=== PATIENT | female | born 1995 | race Caucasian/White ===

== ENCOUNTER 2017-12-16 17:23 | Emergency (ER) | payer OTHER, SELFPAY ==
[2017-12-16 17:48] VITALS: BP 112/77; PULSE 84; RESP 20; TEMP 37.4; O2SAT 96; BMI 23.9
--- NOTE | 2017-12-16 18:06 | HMH.EDUTC ---
[facility] [place] Disposition Clinical Impression: Otitis media Qualifiers: Otitis media type: unspecified Laterality: left Qualified Code(s): H66.92 - Otitis media, unspecified, left ear Disposition: Home, Self-Care Condition on Discharge: Good Instructions: Middle Ear Infection, Ear Infections (Middle Ear) (Alternative Therapy) Additional Instructions: * Monitor Temp. Tylenol and/or Ibuprofen as needed. ER if fever is no less than 101 despite alternating Tylenol and Ibuprofen * Encourage fluids, water, Gatorade, powerade, pedialyte if /toddler/or child * Warm salt water gargles for throat irritation *Warm fluids *Sore throat lozenges *Sleep elevated *humidifier or vaporizer Lots of rest Increase fluids, water, Gatorade, powerade Your throat swab was sent to lab for culture. Those results area typically sent to your primary care physician. Be sure to follow up in 2-3 days if no improvement so they can review those results and treat if necessary If you dont have primary care I recommend you get one, but in the mean time you will have to return to a walk in clinic Follow up IMMEDIATELY for new or worsening of symptoms OR no noticeable improvement over the next 48-72 hours. 911 immediately for any life threatening symptoms such as chest pain or difficulty breathing Prescriptions: Amoxicillin [Amoxil 250mg/5mL 100mL Oral Susp] 500 mg PO Q8H #300 ml Referrals: Thea Marley APRN [Primary Care Provider] - Time of Disposition: 18:15 Medical Decision Making - Medical Records Medical records reviewed: Yes: I reviewed the patient's medical records. - Aniceto Inquiry Pt receiving controlled substance: No Aniceto was queried for this patient: No Vital Signs: 12/16/17 17:48 Temperature 99.4 F Temperature Source Temporal Artery Scan Pulse Rate [Right] 84 Respiratory Rate 20 Blood Pressure [Right Arm] 112/77 Blood Pressure Mean [Right Arm] 88 Blood Pressure Source [Right Arm] Automatic Cuff Blood Pressure Position [Right Arm] Sitting 02 Sat by Pulse Oximetry 96 Oxygen Delivery Method Room Air - Lab Data Lab results reviewed: Yes: I reviewed the patient's lab results. [facility] [place] HPI - General Stated complaint: sore throat, burning in nose, coughing,ear pain Time Seen by Provider: 12/16/17 18:06 Mode of Arrival: Ambulatory Source of Information: Patient Limitations: No Limitations Description of Symptoms (Recalled from Triage Doc. by RN): SORE THROAT, EARACHE HEENT Symptoms (Recalled from RN notes): Yes Resp Symptoms (Recalled from RN notes): No Skin Symptoms (Recalled from RN notes): No MS Symptoms (Recalled from RN notes): No Functional Status (Recalled from RN notes): N - History of Present Illness Provider Complaint: Patient states that she has been having pain in her left ear now for about a week that has continued to get worse States that she is also having sore throat that hurts when she swallows States that throat feels raw and irritated and ear hurts also when she swallows - Related Data Previous Rx's Medication Instructions Recorded Amoxicillin [Amoxil 250mg/5mL 500 mg PO Q8H #300 ml 12/16/17 100mL Oral Susp] Allergies Allergy/AdvReac Type Severity Reaction Status Date / Time azithromycin [AZITHROMYCIN] Allergy Unknown Verified 12/16/17 17:52 COCONUT Allergy Unknown S-SWELLS-OR Uncoded 09/22/17 15:34 AL/THROAT - Worker's Comp Is this a Worker's Comp case?: No [facility] History I have reviewed the patient's past medical history: Yes - Social History Smoking Status: Current every day smoker Tobacco Type: cigarettes Alcohol Intake: never - Psychiatric History Expresses thoughts of harming self/others: None Suicide Plan Description: No Plan ROS Obtained: Yes All systems reviewed & no additional complaints - Constitutional Constitutional: Reports fever(s) - ENT Ears, Nose, Mouth, and Throat: Reports otalgia, Reports sore throat Physical Exam - General General appearance:
--- NOTE | 2017-12-16 18:11 | ED_ITS ---
[facility] Disposition Clinical Impression: Otitis media Qualifiers: Otitis media type: unspecified Laterality: left Qualified Code(s): H66.92 - Otitis media, unspecified, left ear Disposition: Home, Self-Care Condition on Discharge: Good Instructions: Middle Ear Infection, Ear Infections (Middle Ear) (Alternative Therapy) Additional Instructions: * Monitor Temp. Tylenol and/or Ibuprofen as needed. ER if fever is no less than 101 despite alternating Tylenol and Ibuprofen * Encourage fluids, water, Gatorade, powerade, pedialyte if /toddler/or child * Warm salt water gargles for throat irritation *Warm fluids *Sore throat lozenges *Sleep elevated *humidifier or vaporizer Lots of rest Increase fluids, water, Gatorade, powerade Your throat swab was sent to lab for culture. Those results area typically sent to your primary care physician. Be sure to follow up in 2-3 days if no improvement so they can review those results and treat if necessary If you don? t have primary care I recommend you get one, but in the mean time you will have to return to a walk in clinic Follow up IMMEDIATELY for new or worsening of symptoms OR no noticeable improvement over the next 48-72 hours. 911 immediately for any life threatening symptoms such as chest pain or difficulty breathing Prescriptions: Amoxicillin [Amoxil 250mg/5mL 100mL Oral Susp] 500 mg PO Q8H #300 ml Referrals: Thea Marley APRN [Primary Care Provider] - Time of Disposition: 18:15 Medical Decision Making - Medical Records Medical records reviewed: Yes: I reviewed the patient's medical records. - Aniceto Inquiry Pt receiving controlled substance: No Aniceto was queried for this patient: No Vital Signs: 12/16/17 17:48 Temperature 99.4 F Temperature Source Temporal Artery Scan Pulse Rate [Right] 84 Respiratory Rate 20 Blood Pressure [Right Arm] 112/77 Blood Pressure Mean [Right Arm] 88 Blood Pressure Source [Right Arm] Automatic Cuff Blood Pressure Position [Right Arm] Sitting 02 Sat by Pulse Oximetry 96 Oxygen Delivery Method Room Air - Lab Data Lab results reviewed: Yes: I reviewed the patient's lab results. [facility] HPI - General Stated complaint: sore throat, burning in nose, coughing,ear pain Time Seen by Provider: 12/16/17 18:06 Mode of Arrival: Ambulatory Source of Information: Patient Limitations: No Limitations Description of Symptoms (Recalled from Triage Doc. by RN): SORE THROAT, EARACHE HEENT Symptoms (Recalled from RN notes): Yes Resp Symptoms (Recalled from RN notes): No Skin Symptoms (Recalled from RN notes): No MS Symptoms (Recalled from RN notes): No Functional Status (Recalled from RN notes): N - History of Present Illness Provider Complaint: Patient states that she has been having pain in her left ear now for about a week that has continued to get worse States that she is also having sore throat that hurts when she swallows States that throat feels raw and irritated and ear hurts also when she swallows - Related Data Previous Rx's Medication Instructions Recorded Amoxicillin [Amoxil 250mg/5mL 500 mg PO Q8H #300 ml 12/16/17 100mL Oral Susp] Allergies Allergy/AdvReac Type Severity Reaction Status Date / Time azithromycin [AZITHROMYCIN] Allergy Unknown Verified 12/16/17 17:52 COCONUT Allergy Unknown S-SWELLS-OR Uncoded 09/22/17 15:34 AL/THROAT -
[2017-12-16 18:19] VITALS: BP 112/77; PULSE 84; RESP 20; TEMP 37.4
[2017-12-16 19:19] LABS: UTC Influenza A Antigen Negative (Negative); UTC Influenza B Antigen Negative (Negative); UTC Strep Screen (Rapid) Negative (Negative)
== END 2017-12-16 18:22 | disposition home or self-care (01) ==
PROVIDERS: Emergency Provider Nurse Practitioner; Family Provider Nurse Practitioner Family; PCP Nurse Practitioner Family
DX: H66.92 Otitis media, unspecified, left ear (principal)
CPT/HCPCS: 87804; 87880; 99202

== ENCOUNTER 2017-12-24 19:32 | Emergency (ER) | payer OTHER, SELFPAY ==
[2017-12-24 19:43] VITALS: BP 135/85; PULSE 97; RESP 20; TEMP 37.1; O2SAT 22; BMI 20.5
--- NOTE | 2017-12-24 19:49 | XR_ITS ---
XR chest portable HISTORY: ITS.REASON: syncope ORDERING PHYSICIAN: Cecily Toro MD PATIENT AGE: 22 years COMPARISON: 09/13/2017 FINDINGS: The cardiomediastinal silhouette and pulmonary vascularity are within normal limits. There is evidence of old granulomatous disease. There is mild hyperinflation. There is been prior median sternotomy. No lobar consolidation or collapse. Thoracic scoliosis convex right with perinephric and rods present. IMPRESSION: No change with no acute finding
--- NOTE | 2017-12-24 19:49 | CT_ITS ---
CT head/brain wo con HISTORY: Syncope ITS.REASON: syncope ORDERING PHYSICIAN: Cecily Toro MD PATIENT AGE: 22 years COMPARISON: 02/17/2016 TECHNIQUE: Axial images obtained without contrast. Brain and bone windows reviewed. All CT scans at the facility use one or more dose reduction, viz: automated exposure control; ma/kV adjustment per patient size (including targeted exams where dose is matched to indication; i.e. head); or iterative reconstruction technique. FINDINGS: No midline shift, mass effect, intracranial hemorrhage, hydrocephalus, or extra-axial fluid collection is evident. Coarse lobular calcification is present involving the falx anteriorly as before. The calvarium has an unremarkable appearance. No mastoid effusion. No sinus air-fluid levels.. IMPRESSION: No acute intracranial findings.
[2017-12-24 20:06] LABS: Microscopic, Urine URINE MICROSCOPIC (MICROSCOPIC)
[2017-12-24 20:17] LABS: Basophils # 0.1 K/mm3 (0-0.2); Basophils % 0.5 % (0.1-2.0); Eosinophils # 0.2 K/mm3 (0.0-0.4); Eosinophils % 1.5 % (0.1-12.0); Hematocrit 43.8 % (37.0-47.0); Hemoglobin 15.2 g/dL (12.2-16.2); Lymphocytes # 3.2 K/mm3 (0.7-4.5); Lymphocytes % 30.9 K/mm3 (10-50); Mean Corpuscular HGB Conc 34.8 g/dL (31.8-35.4); Mean Corpuscular Hemoglobin 30.5 pg (27.0-31.2); Mean Corpuscular Volume 87.7 fl (81-99); Mean Platelet Volume 7.1 fl (7.4-10.4); Monocytes # 0.4 K/mm3 (0.1-1.0); Monocytes % 3.5 % (1.7-9.3); Neutrophils # 6.6 K/mm3 (1.8-7.8); Neutrophils % 63.5 % (37.0-80.0); Platelet Count 397 K/mm3 (142-424); Red Blood Count 4.99 M/mm3 (4.20-5.40); Red Cell Distribution Width 12.5 % (11.5-17.5); White Blood Count 10.4 K/mm3 (4.8-10.8)
[2017-12-24 20:17] LABS: Appearance,Urine CLEAR (Clear); Bilirubin,Urine Negative (Negative); Blood, Urine Negative (Negative); Color,Urine YELLOW (Yellow); Glucose,Urine (UA) Negative (Negative); Ketones,Urine Negative (Negative); Leukocyte Esterase,Urine 1+ (Negative); Nitrate,Urine Negative (Negative); Protein,Urine Negative (Negative)
[2017-12-24 20:21] LABS: Urine Pregnancy, HCG Qual. Negative (Negative)
--- NOTE | 2017-12-24 20:49 | HMH.EDSYNC ---
ED Disposition Clinical Impression: TIA (transient ischemic attack), Marfan syndrome, Anxiety, Left against medical advice Disposition: Left Against Medical Advice Condition on Discharge: Fair Instructions: DI for Syncope in Adults (Fainting), DI for Syncope in Children (Fainting) Referrals: Thea Marley APRN [Primary Care Provider] - Forms: Transfer Record - ED - Critical Care Critical Care Time: No Attestation: On 12/24/17, the high probability of a clinically significant, sudden or life threatening deterioration of the following system(s) required my full and direct attention, intervention and personal management. The time I documented below is in addition to time spent performing reported procedures but includes the following listed in this critical care notation. Medical Decision Making - Aniceto Inquiry Pt receiving controlled substance: No Ainceto was queried for this patient: No Vital Signs: 12/24/17 19:43 12/24/17 22:42 Temperature 98.7 F 98.7 F Temperature Source Oral Oral Pulse Rate 74 Pulse Rate [Right Radial] 97 H Respiratory Rate 20 18 Blood Pressure 128/78 Blood Pressure [Right Arm] 135/85 Blood Pressure Mean [Right Arm] 101 Blood Pressure Source Automatic Cuff Blood Pressure Position Sitting Blood Pressure Position [Right Arm] Sitting 02 Sat by Pulse Oximetry 22 L Oxygen Delivery Method Room Air - Lab Data Lab Results 12/24/17 19:50: Urine Color Yellow, Urine Appearance Clear, Urine pH 7.0, Ur Specific [place] 1.010, Urine Protein Negative, Urine Glucose (UA) Negative, Urine Ketones Negative, Urine Blood Negative, Urine Nitrate Negative, Urine Bilirubin Negative, Urine Urobilinogen 1.0, Ur Leukocyte Esterase 1+ A, Urine WBC 3-5, Ur Squamous Epith Cells 10-20 12/24/17 19:50: Urine HCG, Qual Negative 12/24/17 19:50: Urine Opiates Screen Negative, Ur Barbituates Screen Negative, Ur Phencyclidine Scrn Negative, Ur Amphetamines Screen Negative, U Methamphetamines Scrn Negative, U Benzodiazepines Scrn Negative, Urine Cocaine Screen Negative, U Marijuana (THC) Screen Negative 12/24/17 20:05: WBC 10.4, RBC 4.99, Hgb 15.2, Hct 43.8, MCV 87.7, MCH 30.5, MCHC 34.8, RDW 12.5, Plt Count 397, MPV 7.1 L, Neut % (Auto) 63.5, Lymph % (Auto) 30.9, [place] % (Auto) 3.5, Eos % (Auto) 1.5, Baso % (Auto) 0.5, Neut # (Auto) 6.6, Lymph # (Auto) 3.2, [place] # (Auto) 0.4, Eos # (Auto) 0.2, Baso # (Auto) 0.1 12/24/17 20:05: Sodium 140, Potassium 3.4 L, Chloride 102, Carbon Dioxide 28, Anion Gap 13.4, BUN 8, Creatinine 0.75, Estimated Creat Clear 112, Estimated GFR 95, Est GFR ( Amer) 115, Glucose 99, Calcium 8.6, Total Bilirubin 0.3, AST 11 L, ALT 21, Alkaline Phosphatase 56, Total Creatine Kinase 42, CK-MB (CK-2) < 0.5, CK-MB (CK-2) Rel Index 1.2, Troponin I < 0.02, Total Protein 7.6, Albumin 3.7, Globulin 3.9 H, Albumin/Globulin Ratio 0.9 L Result diagrams: 12/24/17 20:05 12/24/17 20:05 Orders (Tests/Meds): ED MEDICATIONS Discontinued Medications Generic Name Dose Route Start Last Admin Trade Name Freq PRN Reason Stop Dose Admin Acetaminophen 650 mg 12/24/17 21:50 12/24/17 21:52 Acetaminophen 325mg Tab PO 12/24/17 21:51 650 mg ONCE ONE Administration Sodium Chloride 1,000 mls @ 999 mls/hr 12/24/17 20:00 12/24/17 20:12 Sod Chlor 0.9% 1000ml Bag IV 12/24/17 21:00 999 mls/hr .Q1H1M VICTORIANO Administration ORDERS Category Date Time Status XR chest portable Stat Exams 12/24/17 19:49 Taken Urine Culture Stat Micro 12/24/17 19:50 Received - Radiology Data #1 Image(s): Chest Image Reviewed: Yes I reviewed the patient's radiology image Preliminary Findings: Abnormal Postop changes no acute finding. - CT Data CT Scan: Head Time Received: 22:[address] Reviewed: Yes: I have viewed the radiologist's interpretation Preliminary Findings: Normal/NAD - ECG Data Tracing #1 Normal sinus rhythm 83/min no acute findings ECG initial impression date:
--- NOTE | 2017-12-24 20:55 | ED_ITS ---
ED Disposition Clinical Impression: TIA (transient ischemic attack), Marfan syndrome, Anxiety, Left against medical advice Disposition: Left Against Medical Advice Condition on Discharge: Fair Instructions: DI for Syncope in Adults (Fainting), DI for Syncope in Children ( Fainting) Referrals: Thea Marley APRN [Primary Care Provider] - Forms: Transfer Record - ED - Critical Care Critical Care Time: No Attestation: On 12/24/17, the high probability of a clinically significant, sudden or life threatening deterioration of the following system(s) required my full and direct attention, intervention and personal management. The time I documented below is in addition to time spent performing reported procedures but includes the following listed in this critical care notation. Medical Decision Making - Aniceto Inquiry Pt receiving controlled substance: No Aniceto was queried for this patient: No Vital Signs: 12/24/17 19:43 12/24/17 22:42 Temperature 98.7 F 98.7 F Temperature Source Oral Oral Pulse Rate 74 Pulse Rate [Right Radial] 97 H Respiratory Rate 20 18 Blood Pressure 128/78 Blood Pressure [Right Arm] 135/85 Blood Pressure Mean [Right Arm] 101 Blood Pressure Source Automatic Cuff Blood Pressure Position Sitting Blood Pressure Position [Right Arm] Sitting 02 Sat by Pulse Oximetry 22 L Oxygen Delivery Method Room Air - Lab Data Lab Results 12/24/17 19:50: Urine Color Yellow, Urine Appearance Clear, Urine pH 7.0, Ur Specific [place] 1.010, Urine Protein Negative, Urine Glucose (UA) Negative, Urine Ketones Negative, Urine Blood Negative, Urine Nitrate Negative, Urine Bilirubin Negative, Urine Urobilinogen 1.0, Ur Leukocyte Esterase 1+ A, Urine WBC 3-5, Ur Squamous Epith Cells 10-20 12/24/17 19:50: Urine HCG, Qual Negative 12/24/17 19:50: Urine Opiates Screen Negative, Ur Barbituates Screen Negative, Ur Phencyclidine Scrn Negative, Ur Amphetamines Screen Negative, U Methamphetamines Scrn Negative, U Benzodiazepines Scrn Negative, Urine Cocaine Screen Negative, U Marijuana (THC) Screen Negative 12/24/17 20:05: WBC 10.4, RBC 4.99, Hgb 15.2, Hct 43.8, MCV 87.7, MCH 30.5, MCHC 34.8, RDW 12.5, Plt Count 397, MPV 7.1 L, Neut % (Auto) 63.5, Lymph % (Auto ) 30.9, [place] % (Auto) 3.5, Eos % (Auto) 1.5, Baso % (Auto) 0.5, Neut # (Auto) 6.6, Lymph # (Auto) 3.2, [place] # (Auto) 0.4, Eos # (Auto) 0.2, Baso # (Auto) 0.1 12/24/17 20:05: Sodium 140, Potassium 3.4 L, Chloride 102, Carbon Dioxide 28, Anion Gap 13.4, BUN 8, Creatinine 0.75, Estimated Creat Clear 112, Estimated GFR 95, Est GFR ( Amer) 115, Glucose 99, Calcium 8.6, Total Bilirubin 0.3 , AST 11 L, ALT 21, Alkaline Phosphatase 56, Total Creatine Kinase 42, CK-MB (CK -2) < 0.5, CK-MB (CK-2) Rel Index 1.2, Troponin I < 0.02, Total Protein 7.6, Albumin 3.7, Globulin 3.9 H, Albumin/Globulin Ratio 0.9 L Result diagrams: 12/24/17 20:05 12/24/17 20:05 Orders (Tests/Meds): ED MEDICATIONS Discontinued Medications Generic Name Dose Route Start Last Admin Trade Name Freq PRN Reason Stop Dose Admin Acetaminophen 650 mg 12/24/17 21:50 12/24/17 21:52 Acetaminophen 325mg Tab PO 12/24/17 21:51 650 mg ONCE ONE Administration Sodium Chloride 1,000 mls @ 999 mls/hr 12/24/17 20:00 12/24/17 20:12 Sod Chlor 0.9% 1000ml Bag IV 12/24/17 21:00 999 mls/hr .Q1H1M VICTORIANO Administration ORDERS
[2017-12-24 21:04] LABS: Alanine Aminotransferase 21 U/L (12-78); Albumin Level 3.7 gm/dL (3.4-5.0); Albumin/Globulin Ratio 0.9 (1.1-1.8); Alkaline Phosphatase 56 U/L (46-116); Anion Gap 13.4 mEq/L (5-15); Aspartate Amino Transferase 11 U/L (15-37); Bilirubin,Total 0.3 mg/dL (0.2-1.0); Blood Urea Nitrogen 8 mg/dL (7-18); Calcium 8.6 mg/dL (8.5-10.1); Carbon Dioxide 28 mmol/L (21.0-32.0); Chloride 102 mmol/L (98-107); Creatine Kinase 42 U/L (26-192); Creatinine Clearance Estimated 112 mL/min (0-300); Creatinine,Serum 0.75 mg/dL (0.55-1.02); Estimated Glomerular Filt Rate 95 ml/min (>60); GFR (African American) 115 ML/MIN (>60); Globulin 3.9 gm/dl (1.3-3.2); Glucose 99 mg/dL (74-106); Potassium 3.4 mmoL/L (3.5-5.1); Sodium 140 mmol/L (136-145); Total Protein,Serum 7.6 gm/dL (6.4-8.2); Troponin I < 0.02 ng/ml (0.00-0.06)
[2017-12-24 21:47] LABS: Amphetamine/Metha Screen,Urine Negative ng/mL (<1000); Barbiturates Screen,Urine Negative ng/mL (<200); Benzodiazepines Screen,Urine Negative ng/mL (200); Cannabinoid Screen,Urine Negative ng/mL (<50); Cocaine Screen,Urine Negative ng/g (<300); Methadone Screen,Urine Negative ng/mL (<300); Opiate Screen,Urine Negative ng/mL (<300); Phencyclidine Screen,Urine Negative ng/mL (<25)
[2017-12-24 21:53] LABS: CKMB Relative Index 1.2 U/L (0-4.0); Creatine Kinase MB < 0.5 ng/ml (0.0-3.6)
[2017-12-24 22:42] VITALS: BP 128/78; PULSE 74; RESP 18; TEMP 37.1; O2SAT 98
== END 2017-12-24 22:49 | disposition left against medical advice (07) ==
PROVIDERS: Emergency Medicine; Emergency Provider Emergency Medicine; Family Provider Nurse Practitioner Family; PCP Nurse Practitioner Family
DX: G45.8 Other transient cerebral ischemic attacks and related syndromes (principal); Q87.40 Marfan syndrome, unspecified; F17.210 Nicotine dependence, cigarettes, uncomplicated; F41.9 Anxiety disorder, unspecified
CPT/HCPCS: 70450; 71045; 80053; 80305; 81001; 81025; 82550; 82553; 84484; 85025; 87086; 93005; 96365; 99282; 99283

== ENCOUNTER → 2018-01-28 07:56 | Outpatient (CLI) | payer OTHER, SELFPAY ==
--- NOTE | 2018-01-28 07:58 | CA_ITS ---
PROCEDURE: 2-D M-mode and color Doppler study INDICATIONS FOR THE TEST: Chest pain+ COPD+ Heart Murmur+ Tobacco Smoking+ Palpitations+ Fatigue+ Syncope+ Edema Hypertension Diabetes Mellitus Rheumatic Fever SOB+BECK+Obesity Hyperlipidemia Family History HD+ Additional History hx of TIA, Marfan syndrome, dizziness, anxiety, Abn EKG, Asthma PATIENT INFORMATION HEIGHT: 68 WEIGHT: 142 GENDER: Female B/P: 144/77 2-D/M-MODE INTERPRETATION: 2-D MEASUREMENTS OBSERVED VALUES IN CMS Right Ventricular Dimension (RVDd) 1.7 Interventricular Septum (Thickness)(IVsd) 0.9 Left Ventricular Internal Dimensions(LVIDd) 3.5 Left Ventricular Posterior Wall (Thickness)(LVPWd) 1.0 Aortic Root 2.1 Aortic Cusp Separation 1.6 Left Atrial Dimensions (LAD) 2.0 2D 1. Technically difficult study because of the patient's factor and poor acoustic windows. 2. The left atrium is normal size, left ventricle is normal size, there is no concentric left ventricular hypertrophy, visually estimated ejection fraction 55% with no obvious regional wall motion abnormality. 3. The right atrium and right ventricle are normal size and contractility. 4. The aortic valve in aortic root is not well visualized this study. 5. The mitral and tricuspid valvular grossly normal. 6. The pulmonic valve is poorly visualized. 7. No significant pericardial effusion noted. DOPPLER INTERROGATION: Doppler interrogation of the aortic, mitral and tricuspid valvular presence of mild mitral and tricuspid regurgitation, tricuspid and enteric velocity insufficient for calculation of the right ventricular systolic pressure. Diastolic parameters are within normal range. CONCLUSION: 1. Technically difficult study because of the patient's factor and poor acoustic windows, aortic valve in aortic root is not well visualized this study. 2. Normal left ventricular size, preserved left ventricular systolic function, visually estimated ejection fraction 55% with no obvious regional wall motion abnormality, diastolic parameters are within normal range. 3. Mild mitral and tricuspid regurgitation 4. No significant pericardial effusion noted.
[2018-01-28 09:36] LABS: Basophils # 0.1 K/mm3 (0-0.2); Basophils % 0.8 % (0.1-2.0); Eosinophils # 0.2 K/mm3 (0.0-0.4); Eosinophils % 2.2 % (0.1-12.0); Hematocrit 39.1 % (37.0-47.0); Hemoglobin 13.2 g/dL (12.2-16.2); Lymphocytes # 3.1 K/mm3 (0.7-4.5); Lymphocytes % 42.2 K/mm3 (10-50); Mean Corpuscular HGB Conc 33.7 g/dL (31.8-35.4); Mean Corpuscular Volume 89.1 fl (81-99); Mean Platelet Volume 7.4 fl (7.4-10.4); Monocytes # 0.3 K/mm3 (0.1-1.0); Monocytes % 4.3 % (1.7-9.3); Neutrophils # 3.8 K/mm3 (1.8-7.8); Neutrophils % 50.5 % (37.0-80.0); Platelet Count 310 K/mm3 (142-424); Red Blood Count 4.39 M/mm3 (4.20-5.40); Red Cell Distribution Width 12.5 % (11.5-17.5); White Blood Count 7.5 K/mm3 (4.8-10.8)
[2018-01-28 11:32] LABS: Alanine Aminotransferase 21 U/L (12-78); Albumin Level 3.6 gm/dL (3.4-5.0); Alkaline Phosphatase 42 U/L (46-116); Anion Gap 12.2 mEq/L (5-15); Aspartate Amino Transferase 14 U/L (15-37); Bilirubin,Direct 0.1 mg/dL (0.0-0.2); Bilirubin,Total 0.4 mg/dL (0.2-1.0); Blood Urea Nitrogen 7 mg/dL (7-18); Carbon Dioxide 28 mmol/L (21.0-32.0); Chloride 105 mmol/L (98-107); Chol/HDL Ratio 3.2 (1-3.5); Cholesterol 165 mg/dL (140-200); Creatinine,Serum 0.67 mg/dL (0.55-1.02); Estimated Glomerular Filt Rate 108 ml/min (>60); Free Thyroxine Index 3.5 ug/dL (5.93-13.13); GFR (African American) 131 ML/MIN (>60); Glucose 90 mg/dL (74-106); HDL Cholesterol 51 mg/dL (29-89); LDL Cholesterol 101 mg/dL (0-130); Potassium 4.2 mmoL/L (3.5-5.1); Sodium 141 mmol/L (136-145); Thyroid Stimulating Hormone 2.18 uIU/ml (0.358-3.740); Total Protein,Serum 6.7 gm/dL (6.4-8.2); Triglycerides 66 mg/dL (30-200); Triiodothryronine (T3) Uptake 32 % (31-39); VLDL Cholesterol 13 mg/dL (0-40)
== END ==
PROVIDERS: Physician Assistant; Family Provider Nurse Practitioner Family; PCP Nurse Practitioner Family; Visit Provider Internal Medicine
DX: R07.9 Chest pain, unspecified (principal); R06.00 Dyspnea, unspecified; R01.1 Cardiac murmur, unspecified; R00.2 Palpitations; R55 Syncope and collapse; R94.31 Abnormal electrocardiogram [ECG] [EKG]; Q87.40 Marfan syndrome, unspecified; F41.9 Anxiety disorder, unspecified; G45.9 Transient cerebral ischemic attack, unspecified; F17.200 Nicotine dependence, unspecified, uncomplicated
CPT/HCPCS: 36415; 80048; 80061; 80076; 84436; 84443; 84479; 85025; 93306

== ENCOUNTER → 2018-03-26 12:01 | Outpatient (CLI) | payer OTHER, SELFPAY ==
[2018-03-30 09:18] LABS: Neisseria gonorrhoeae, NAA Negative (Negative)
== END ==
PROVIDERS: Visit Provider Obstetrics & Gynecology
DX: Z11.8 Encounter for screening for other infectious and parasitic diseases (principal); Z11.3 Encounter for screening for infections with a predominantly sexual mode of transmission
CPT/HCPCS: 36415; 87491; 87591

== ENCOUNTER → 2018-04-13 10:08 | Outpatient (CLI) | payer OTHER, SELFPAY ==
--- NOTE | 2018-04-13 10:42 | CT_ITS ---
CT angio chest HISTORY: ITS.REASON: MARFANS SYNDROME, UPPER ABD BRUIT, evaluate for possible aneurysm in this patient with Marfan syndrome and an abdominal bruit ORDERING PHYSICIAN: THANH Schneider PATIENT AGE: 22 years COMPARISON: 12/26/2011 TECHNIQUE: Axial images obtained following the administration of 75 mL of Isovue 100. Sagittal, and coronal reformatted images are also generated and reviewed. All CT scans at the facility use one or more dose reduction, viz: automated exposure control; ma/kV adjustment per patient size (including targeted exams where dose is matched to indication; i.e. head); or iterative reconstruction technique. FINDINGS: There is extensive artifact from thoracic spine rods and screws. No evidence of aortic aneurysm or dissection. No evidence of central pulmonary embolus No mediastinal or hilar mass. There is some residual density in the anterior mediastinum consistent with residual thymic tissue. Calcified mediastinal and hilar lymph nodes are present. No suspicious nodules. No lobar consolidation or collapse. Calcified granulomas are present in both lungs. No effusions. There is moderate S shaped curvature of the thoracic lumbar spine with dextroscoliosis of the thoracic spine and levoscoliosis of the lumbar spine. Richard rods are present in the thoracic spine. IMPRESSION: 1. No evidence of aortic aneurysm or dissection. 2. Thoracic scoliosis with postsurgical change 3. Old granulomatous disease
--- NOTE | 2018-04-13 10:43 | CT_ITS ---
CT angio abdomen pelvis CLINICAL INDICATION: Evaluate for aneurysm in this patient with abdominal bruit and Marfan syndrome ITS.REASON: MARFANS SYNDROME, UPPER ABD BRUIT ORDERING PHYSICIAN: THANH Schneider PATIENT AGE: 22 years COMPARISON: None TECHNIQUE: Axial images obtained with sagittal and coronal reformats. All CT scans at the facility use one or more dose reduction, viz: automated exposure control; ma/kV adjustment per patient size (including targeted exams where dose is matched to indication; i.e. head); or iterative reconstruction technique. PROCEDURE: Oral Contrast: None IV Contrast: 100 mL's of Isovue-370 performed in conjunction with chest CT. FINDINGS: No evidence of abdominal aortic aneurysm or dissection. No significant stenosis of the abdominal aorta. The iliac vessels have an unremarkable appearance. There is mild narrowing of the ostium of the celiac artery of approximately 20% %. The SMA has an unremarkable appearance. The renal arteries have an unremarkable appearance. The liver, gallbladder, spleen, adrenal glands, pancreas, and kidneys have an unremarkable appearance. No intestinal obstruction or free air. No acute bony anomalies. There is mild lumbar scoliosis convex left. IMPRESSION: 1. No evidence of abdominal aortic aneurysm or dissection. 2. 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
== END ==
PROVIDERS: Family Provider Nurse Practitioner Family; PCP Nurse Practitioner Family; Visit Provider Physician Assistant
DX: Q87.40 Marfan syndrome, unspecified (principal); R09.89 Other specified symptoms and signs involving the circulatory and respiratory systems
CPT/HCPCS: 71275; 74174; Q9967

== ENCOUNTER → 2018-08-03 16:15 | Outpatient (CLI) | payer OTHER, SELFPAY | PROVIDERS: Visit Provider Nurse Practitioner Obstetrics & Gynecology | DX: N76.4 Abscess of vulva (principal) | CPT/HCPCS: 87070; 87205 ==

== ENCOUNTER → 2019-02-08 16:56 | Outpatient (CLI) | payer OTHER, SELFPAY | PROVIDERS: Visit Provider Nurse Practitioner Obstetrics & Gynecology | DX: L02.91 Cutaneous abscess, unspecified (principal) | CPT/HCPCS: 87070; 87077; 87186; 87205 ==

== ENCOUNTER → 2019-11-17 13:46 | Outpatient (CLI) | payer OTHER, SELFPAY ==
[2019-11-17 16:06] LABS: HCG,Quantitative 0 mIU/mL (0-2)
== END ==
PROVIDERS: Visit Provider Nurse Practitioner Obstetrics & Gynecology
DX: N92.6 Irregular menstruation, unspecified (principal)
CPT/HCPCS: 36415; 84702

== ENCOUNTER → 2020-06-12 16:34 | Outpatient (CLI) | payer OTHER, SELFPAY | PROVIDERS: Visit Provider Obstetrics & Gynecology | DX: L02.91 Cutaneous abscess, unspecified (principal) | CPT/HCPCS: 87070; 87077; 87186; 87205 ==

== ENCOUNTER → 2020-10-29 09:44 | Outpatient (CLI) | payer OTHER, SELFPAY ==
--- NOTE | 2020-10-29 09:49 | XR_ITS ---
PROCEDURE: XR SHOULDER RT MIN 2V CLINICAL INDICATION: RT shoulder pain COMPARISON: No exams were available for comparison FINDINGS: No fracture or dislocation. No lytic or blastic change. There is normal mineralization. The joint spaces are well-preserved. No significant degenerative/arthritic changes. No erosive changes evident. Other findings:Richard rods are in place IMPRESSION: Negative right shoulder Dictated by: Dao Moody MD 10/29/2020 18:12 Dao Moody MD in [place] 10/29/2020 18:12
== END ==
PROVIDERS: PCP Nurse Practitioner; Visit Provider Orthopaedic Surgery
DX: M25.511 Pain in right shoulder (principal)
CPT/HCPCS: 73030

== ENCOUNTER → 2020-11-08 15:25 | Outpatient (CLI) | payer OTHER, SELFPAY ==
--- NOTE | 2020-11-08 15:25 | CT_ITS ---
PROCEDURE: CT SHOULDER RT WO CON CLINICAL HISTORY: RT shoulder pain COMPARISON: CR XR SHOULDER RT MIN 2V from 10/29/2020 TECHNIQUE: Axial images obtained with sagittal and coronal reformats. All CT scans at the facility use one or more dose reduction, viz: automated exposure control, ma/kV adjustment per patient size (including targeted exams where dose is matched to indication, i.e. head), or iterative reconstruction technique. FINDINGS: No fracture or dislocation. No lytic or blastic change. The sternoclavicular joint and acromioclavicular joint have an unremarkable appearance. There is mild narrowing of the glenohumeral joint without osteophytes or bony sclerosis. No soft tissue masses. Unremarkable appearing axilla. There is mild subacromial stenosis at 5 mm with a slightly high-riding humeral head. Minimal fibrotic changes are present in the right apex. Incidental note is made dextroscoliosis with postsurgical changes of the thoracic spine. IMPRESSION: Mild subacromial stenosis with slightly high-riding humeral head which may be seen with rotator cuff disease. The glenohumeral joint is slightly narrowed which may be seen with early osteoarthritis. Dictated by: Dao Moody MD 11/09/2020 05:14 Dao Moody MD in [place] 11/09/2020 05:14
== END ==
PROVIDERS: PCP Nurse Practitioner; Visit Provider Orthopaedic Surgery
DX: M25.511 Pain in right shoulder (principal)
CPT/HCPCS: 73200

== ENCOUNTER → 2021-05-15 16:03 | Outpatient (CLI) | payer OTHER, SELFPAY ==
[2021-05-15 17:14] LABS: HCG,Quantitative < 2 mIU/ml (0-5.42)
== END ==
PROVIDERS: Visit Provider Obstetrics & Gynecology
DX: Z34.90 Encounter for supervision of normal pregnancy, unspecified, unspecified trimester (principal)
CPT/HCPCS: 36415; 84702

== ENCOUNTER 2022-06-30 17:39 | Emergency (ER) | payer OTHER, SELFPAY ==
[2022-06-30 18:00] VITALS: BP 131/72; PULSE 91; RESP 19; TEMP 37.1; O2SAT 98; BMI 22.8
--- NOTE | 2022-06-30 18:22 | EXP.UTC ---
Discharge Plan Disposition Patient Disposition: Home, Self-Care Condition: Good Prescriptions Prescriptions: New methylprednisolone [Medrol (Hipolito)] 4 mg tablets,dose pack See Rx Instructions .Route .COMPLEX 6 Days Qty: 21 0RF Rx Instructions: taper pack; cefdinir 300 mg capsule 300 mg PO BID Qty: 20 0RF No Action cetirizine [Zyrtec] 10 mg tablet 10 mg PO DAILY norgestimate-ethinyl estradiol [Sprintec (28)] 0.25-35 mg-mcg tablet 1 tab PO DAILY Qty: 28 11RF Referrals Follow up/Referrals: Provider,Referral, [Primary Care Provider] - See instructions Activity Restrictions/Add. Instructions Additional Instructions/Restrictions: *Monitor Temp, Over the counter Motrin or Tylenol as directed/as needed Tylenol every 4 hours and Motrin every 6 hours (as long as your family doctor has told you that you can take it) for fever or pain. and straight to ER if unable to lower temp less than 101.0 after medication given *Warm salt water gargles may help to soothe the throat *Throat Lozenges? *Warm fluids like tea with honey may help to soothe the throat? *Sleep elevated *Humidifier/Vaporizer Your throat swab was sent for culture. Those results are typically sent to your primary care. Be sure to follow up in 2-3 days with your family doctor/primary care physician if no improvement so they can review those result and treat if necessary. If you don?t have a primary care doctor, I recommend you get one but in the mean time, you will have to return to a walk in clinic Follow up IMMEDIATELY for new or worsening symptoms or no Noticeable improvement over the next 48-72 hours. 911 for difficulty breathing or swallowing You were tested for today for COVID19 your test result should be back in the next 24-48 hours, you may check your results on the [facility] My Health Portal Make sure to take your Vitamins Vit. C Vit D and Zinc if you can take them Clinical Impressions Clinical Impression: URI (upper respiratory infection) Stand Alone Forms Stand Alone Forms: Work/School Release Instructions Patient Instructions: Sore Throat, DI for Fever (Symptom) -- Adult Discharge ED Provider: Adrianna Montes De Oca [facility] [place] General Stated complaint: body aches, bilateral ear pain, congestion, cough Mode of Arrival: Ambulatory Source of Information: Patient Limitations: No Limitations Time Seen by Provider: 06/30/22 18:22 Description of Symptoms (Recalled from Triage Doc. by RN): PATIENT C/O SORE THROAT, RUNNY NOSE, EAR PAIN, COUGH, AND BODY ACHES X 3 DAYS HEENT Symptoms (Recalled from RN notes): Yes Resp Symptoms (Recalled from RN notes): Yes Skin Symptoms (Recalled from RN notes): No MS Symptoms (Recalled from RN notes): No Functional Status (Recalled from RN notes): WNL History of Present Illness Provider Complaint: Patient states that she hasnt felt well for about 3-4 days States that she has been having sore throat, cough, bilateral ear pain and body aches and headache States that today she was feeling worse and hurt when she would swallow so she came in to get checked out Related Data Home Medications Medication Instructions Recorded Confirmed cetirizine 10 mg tablet (Zyrtec) 10 mg PO DAILY ALLERGIES 01/04/18 04/02/22 Previous Rx's Medication Instructions Recorded norgestimate 0.25 mg-ethinyl 1 tab PO DAILY #28 tabs 08/20/21 estradiol 35 mcg tablet (Sprintec (28)) cefdinir 300 mg capsule 300 mg PO BID #20 caps 06/30/22 methylprednisolone 4 mg tablets in See Rx Instructions .Route 06/30/22 a dose pack (Medrol (Hipolito)) .COMPLEX 6 days #21 tabs Allergies Allergy/AdvReac Type Severity Reaction Status Date / Time azithromycin [AZITHROMYCIN] Allergy Unknown Unknown Verified 04/02/22 11:01 allergy reaction coconut Allergy Swelling Verified 04/02/22 11:01 of Lip/Tongue/Throat Worker's Comp Is this a Worker's Comp case?: No PFSH PFSH Medical History (Upd
[2022-06-30 18:31] LABS: UTC Strep Screen (Rapid) Negative (Negative)
[2022-06-30 18:35] VITALS: BP 131/72; PULSE 91; RESP 19; TEMP 37.1; O2SAT 98
== END 2022-06-30 18:55 | disposition home or self-care (01) ==
PROVIDERS: Emergency Provider Nurse Practitioner
DX: J06.9 Acute upper respiratory infection, unspecified (principal); H92.03 Otalgia, bilateral; J02.9 Acute pharyngitis, unspecified; M79.10 Myalgia, unspecified site; R51.9 Headache, unspecified; F17.210 Nicotine dependence, cigarettes, uncomplicated; Z79.52 Long term (current) use of systemic steroids; Z79.890 Hormone replacement therapy; Z79.899 Other long term (current) drug therapy; Z88.0 Allergy status to penicillin; Z88.1 Allergy status to other antibiotic agents; Z88.3 Allergy status to other anti-infective agents; Z91.018 Allergy to other foods; Z86.73 Personal history of transient ischemic attack (TIA), and cerebral infarction without residual deficits
CPT/HCPCS: 87880; 99213; C9803; G0463; U0003; U0005

== ENCOUNTER → 2022-09-16 14:19 | Outpatient (CLI) | payer OTHER, SELFPAY ==
[2022-09-16 15:26] LABS: Basophils # 0.1 K/mm3 (0-0.2); Basophils % 1.5 % (0.1-2.0); Eosinophils # 0.2 K/mm3 (0.0-0.4); Eosinophils % 2.3 % (0.1-12.0); Hematocrit 46.4 % (37.0-47.0); Hemoglobin 15.7 g/dL (12.2-16.2); Lymphocytes # 2.7 K/mm3 (0.7-4.5); Lymphocytes % 31.2 % (10-50); Mean Corpuscular HGB Conc 33.9 g/dL (31.8-35.4); Mean Corpuscular Hemoglobin 30.7 pg (27.0-31.2); Mean Corpuscular Volume 90.5 fl (81-99); Mean Platelet Volume 7.9 fl (7.4-10.4); Monocytes # 0.3 K/mm3 (0.1-1.0); Monocytes % 3.5 % (1.7-9.3); Neutrophils # 5.4 K/mm3 (1.8-7.8); Neutrophils % 61.5 % (37.0-80.0); Platelet Count 406 K/mm3 (142-424); Red Blood Count 5.12 M/mm3 (4.20-5.40); Red Cell Distribution Width 12.9 % (11.5-17.5); White Blood Count 8.7 K/mm3 (4.8-10.8)
[2022-09-18 14:46] LABS: Deamidated Gliadin Abs, IgA 3 units (0-19); Deamidated Gliadin Abs, IgG 2 units (0-19); Tissue Transglutaminase IgA Ab <2 U/mL (0-3); Tissue Transglutaminase IgG Ab 3 U/mL (0-5)
[2022-09-18 15:10] LABS: Endomysial IgA Antibody Negative (Negative)
[2022-09-19 13:15] LABS: Reticulin IgA Antibody Negative titer (Neg:<1:2.5); Saccharomyces cerevisiae, IgA <20.0 Units (0.0-24.9); Saccharomyces cerevisiae, IgG 74.8 Units (0.0-24.9)
== END ==
PROVIDERS: PCP Family Medicine; Visit Provider Family Medicine
DX: K62.5 Hemorrhage of anus and rectum (principal); R10.9 Unspecified abdominal pain; R11.0 Nausea
CPT/HCPCS: 36415; 83516; 85025; 86255; 86256; 86671

== ENCOUNTER 2022-10-05 14:50 | Emergency (ER) | payer OTHER, SELFPAY ==
--- NOTE | 2022-10-05 16:42 | EXP.UTC ---
Discharge Plan Disposition Patient Disposition: Home, Self-Care Condition: Good Prescriptions Prescriptions: New metronidazole 500 mg tablet 500 mg PO BID 7 Days Qty: 14 0RF fluconazole 100 mg tablet 100 mg PO DAILY 4 Days Qty: 4 0RF nystatin 100,000 unit/gram cream 1 applic topical BID 7 Days Qty: 15 1RF No Action cetirizine [Zyrtec] 10 mg tablet 10 mg PO DAILY promethazine 12.5 mg tablet 12.5 mg PO Q6H PRN (Reason: nausea and vomiting) Qty: 20 0RF norgestimate-ethinyl estradiol [Sprintec (28)] 0.25-35 mg-mcg tablet 1 tab PO DAILY 28 Days Qty: 28 2RF fluconazole [Diflucan] 150 mg tablet 150 mg PO DAILY Qty: 1 0RF sodium,potassium,mag sulfates [Suprep Bowel Prep Kit] 17.5-3.13-1.6 gram recon soln 354 ml PO .COMPLEX Rx Instructions: 354 mL orally; follow mailed instructions Referrals Follow up/Referrals: Ellen Mclean DO [Primary Care Provider] - See instructions Activity Restrictions/Add. Instructions Additional Instructions/Restrictions: Drink plenty of fluids. Eat yogurt at least twice per day for the next week or so if you will eat yogurt. If not, then get the pharmacist to direct you to an OTC probiotic that will contain the same bacteria. Take tylenol or ibuprofen for pain or fever. Take the medications as directed. Don't drink alcohol while you are on the metronidazole (flagyl) because it will cause severe GI upset symptoms if you do. Follow up with your regular doctor. 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 GO TO THE ER FOR ANY WORSENING SYMPTOMS Clinical Impressions Clinical Impression: Bacterial vaginosis Stand Alone Forms Stand Alone Forms: Work/School Release Instructions Patient Instructions: DI for Bacterial Vaginosis, Metronidazole, Fluconazole Discharge ED Provider: Rory Zarate [facility] General Stated complaint: Female issuse (wouldn't go into detail) Time Seen by Provider: 10/05/22 16:42 History of Present Illness Provider Complaint: She states that for the past 4 days she has had vaginal irritation and whitish to greenish vaginal discharge. She states that she is not sexually active. She denies any possible std. She denies dysuria and other urinary complaints other that it hurts to wipe after she finishes urinating. Related Data Home Medications Medication Instructions Recorded Confirmed cetirizine 10 mg tablet (Zyrtec) 10 mg PO DAILY ALLERGIES 01/04/18 09/26/22 sodium,potassium,mag sulfates 17.5 354 ml PO .COMPLEX prep 09/18/22 09/26/22 gram-3.13 gram-1.6 gram oral soln (Suprep Bowel Prep Kit) Previous Rx's Medication Instructions Recorded promethazine 12.5 mg tablet 12.5 mg PO Q6H PRN nausea and 09/16/22 vomiting #20 tabs norgestimate 0.25 mg-ethinyl 1 tab PO DAILY control 28 09/22/22 estradiol 35 mcg tablet (Sprintec days #28 tabs (28)) fluconazole 150 mg tablet 150 mg PO DAILY #1 tab 10/03/22 (Diflucan) fluconazole 100 mg tablet 100 mg PO DAILY 4 days #4 tabs 10/05/22 metronidazole 500 mg tablet 500 mg PO BID 7 days #14 tabs 10/05/22 nystatin 100,000 unit/gram topical 1 applic topical BID 7 days #15 10/05/22 cream grams Allergies Allergy/AdvReac Type Severity Reaction Status Date / Time azithromycin [AZITHROMYCIN] Allergy Unknown Unknown Verified 09/16/22 13:06 allergy reaction coconut Allergy Swelling Verified 09/16/22 13:06 of Lip/Tongue/Throat [facility] Disclaimer: The information contained in this section may have been updated after the patient was seen, as this information can be updated by other users. Medical History Acute bronchitis Allergic rhinitis Bronchitis Chest pain Cryptogenic stroke Dyspnea Left against medical advice Normal Pap smear Otitis media Otitis media, left Palpitations PND (post-nasal drip) Strep throat Thoracic back pain URI (upper respiratory infection)
[2022-10-05 17:00] VITALS: BP 109/74; PULSE 95; RESP 20; TEMP 37.4; O2SAT 96; BMI 22.7
[2022-10-05 17:23] VITALS: BP 109/74; PULSE 95; RESP 20; TEMP 37.4; O2SAT 96
== END 2022-10-05 17:29 | disposition home or self-care (01) ==
PROVIDERS: Emergency Provider Nurse Practitioner Family; PCP Family Medicine
DX: N76.0 Acute vaginitis (principal)
CPT/HCPCS: 99212; G0463

== ENCOUNTER 2022-10-16 08:36 | Day surgery (SDC) | payer OTHER, SELFPAY ==
[2022-10-06 12:00] VITALS: BMI 23.8
[2022-10-16 08:59] VITALS: BP 112/66; PULSE 89; RESP 16; TEMP 37.2; O2SAT 98
[2022-10-16 09:07] LABS: Urine Pregnancy, HCG Qual. Negative (Negative)
[2022-10-16 09:25] VITALS: O2SAT 98
--- NOTE | 2022-10-16 09:42 | HMH.SCOPE ---
Procedure: Date: 10/16/22 Patient Date of :: 1995 Procedure Performed:: Diagnostic colonoscopy Indications:: Recent rectal bleeding Performing Provider:: Radha Martinez MD Referring Provider:: Ellen Mcelan Sedation:: Propofol Procedure:: After placing the patient in the left lateral decubitus position, the colonoscopy was gently inserted into the rectum and under direct visualization advanced to the cecum which was identified by transillumination in the right lower quadrant, identification of the ileocecal valve, appendiceal orifice, and cecal strap. Color, texture, mucosa, and anatomy of the colon were carefully examined with the scope. Findings:: Anal canal: normal Rectum: normal Sigmoid colon: normal without polyps or inflammatory changes Descending colon: normal without polyps or inflammatory changes Splenic flexure: normal Transverse colon: normal without polyps or inflammatory changes Hepatic flexure: normal Ascending colon: normal without polyps or inflammatory changes Cecum: normal Terminal ileum: not visualized Impression: Normal colonoscopy, no evidence of current inflammatory changes Specimens:: None Recommendations:: Follow up examination at age 43 or as clinically indicated Complications:: None Estimated blood obtained (mL): 0
[2022-10-16 09:45] VITALS: BP 121/62; PULSE 72; RESP 16; TEMP 36.5; O2SAT 95
--- NOTE | 2022-10-16 09:49 | P.PN_ITS ---
[facility] Disclaimer: The information contained in this section may have been updated after the patient was seen, as this information can be updated by other users. Medical History (Updated 10/16/22 @ 08:58 by Yanely Aj RN) Acute bronchitis Allergic rhinitis Asthma Bronchitis Chest pain Cryptogenic stroke Dyspnea Left against medical advice Normal Pap smear Otitis media Otitis media, left Palpitations PND (post-nasal drip) Strep throat Thoracic back pain URI (upper respiratory infection) URI (upper respiratory infection) UTI (urinary tract infection) Viral upper respiratory illness Wheezing Surgical History (Updated 10/16/22 @ 08:53 by Yanely Aj, RN) History of appendectomy History of cholecystectomy History of hysterectomy History of loop recorder History of spinal fusion for scoliosis History of tonsillectomy Family History Father Cancer colon Coronary artery disease Mother Hypertension Hyperlipidemia Social History Smoking Status: Current every day smoker tobacco type: cigarettes packs per day: 1 quit status: has quit before second hand exposure: Yes alcohol intake: current counseling provided: none substance use type: denies use current occupational status: employed and other Travel in the last 8 weeks: None household members: significant other housing: apartment lives independently: Yes marital status: single education level: high school sexually active: Yes caffeine: Yes special lulu needs: No agree to transfusion: No do you feel safe at home: Yes victim of physical abuse: No victim of emotional abuse: No victim of sexual abuse: No would you like helpful sources: No [facility] Anesthesia Checklist Patient Identification Patient Identification: Verbal (Name & ) Structural Data Admitted From: Home Planned Operative Procedure/s: colonoscopy Consent for Planned Operative Procedure(s) Verified: Yes Additional verifications Anesthesia Reactions: No Hx Blood Transfusions: No Blood Transfusion Reaction: No Airway Assessment C-Spine Mobility Assessed: Yes TMJ Mobility Assessed: Yes Dentition: Poor Dentition Neurological Assessment Level of Consciousness: Awake, Alert and Appropriate Anesthesia Plan Anesthesia Risk discussed: Yes Anesthesia Plan: Verified ASA Class: II Anesthesia Type: MAC
[2022-10-16 09:55] VITALS: BP 117/92; PULSE 80; RESP 17; O2SAT 95
[2022-10-16 10:05] VITALS: BP 120/72; PULSE 84; RESP 16; O2SAT 96
[2022-10-16 10:15] VITALS: BP 126/70; PULSE 86; RESP 17; O2SAT 95
== END 2022-10-16 10:35 | disposition home or self-care (01) ==
PROVIDERS: PCP Family Medicine; Visit Provider Internal Medicine Gastroenterology
PROC: 0DJD8ZZ Inspection of Lower Intestinal Tract, Via Natural or Artificial Opening Endoscopic (ICD-10-PCS; CPT 45378; principal; 2022-10-16 10:00)
DX: K92.1 Melena (principal); R10.9 Unspecified abdominal pain; R11.0 Nausea
CPT/HCPCS: 45378; 81025

== ENCOUNTER 2023-09-09 14:56 | Emergency (ER) | payer OTHER, SELFPAY ==
[2023-09-09 15:15] VITALS: BP 130/96; PULSE 65; RESP 18; TEMP 36.6; O2SAT 96; BMI 23.2
--- NOTE | 2023-09-09 15:19 | EXP.UTC ---
Discharge Plan Disposition Patient Disposition: Home, Self-Care Condition: Good Prescriptions Prescriptions: New ruoyoanxorhsdsw-qmdhpnqyx-OD [Bromfed DM] 2-30-10 mg/5 mL Syrup 5 ml PO Q6H PRN (Reason: Cough) Qty: 240 0RF amoxicillin-pot clavulanate 875-125 mg Tablet 1 tab PO Q12H Qty: 20 0RF methylprednisolone 4 mg Tablets,Dose Pack 4 mg PO DIRECTED Qty: 21 0RF guaifenesin [Mucinex] 600 mg tablet extended release 12hr 600 - 1,200 mg PO BIDP PRN (Reason: Congestion) Qty: 30 0RF No Action cetirizine [Zyrtec] 10 mg tablet 10 mg PO DAILY albuterol sulfate 90 mcg/actuation HFA aerosol inhaler See Rx Instructions .ROUTE .COMPLEX Qty: 8.5 0RF Dose Instruction: INHALE 1 PUFF BY MOUTH 4 TIMES DAILY NEEDED Rx Instructions: INHALE 1 PUFF BY MOUTH 4 TIMES DAILY NEEDED norgestimate-ethinyl estradiol [Sprintec (28)] 0.25-35 mg-mcg tablet 1 tab PO DAILY 28 Days Qty: 28 7RF Referrals Follow up/Referrals: Provider,Referral, MD [Primary Care Provider] - See instructions Activity Restrictions/Add. Instructions Additional Instructions/Restrictions: Drink plenty of fluids. Take tylenol or ibuprofen for pain or fever. Take the medications as directed. Follow up with your regular doctor. GO TO THE ER FOR ANY WORSENING SYMPTOMS Clinical Impressions Clinical Impression: Acute bronchitis, Sinusitis Stand Alone Forms Stand Alone Forms: Work/School Release Instructions Patient Instructions: Acute Bronchitis, DI for Acute Bronchitis Discharge ED Provider: Rory Zarate [facility] General Stated complaint: head,nose,ear,chest congestion Time Seen by Provider: 09/09/23 15:17 History of Present Illness Provider Complaint: She states that for the past 2 weeks she has had chest and sinus congestion. She has a history of copd. She denies fever/chills/body aches. Related Data Home Medications Medication Instructions Recorded Confirmed cetirizine 10 mg tablet (Zyrtec) 10 mg PO DAILY ALLERGIES 01/04/18 09/09/23 Previous Rx's Medication Instructions Recorded albuterol sulfate 90 mcg/actuation See Rx Instructions .Route 11/26/22 aerosol inhaler .COMPLEX #8.5 grams norgestimate 0.25 mg-ethinyl 1 tab PO DAILY control 06/03/23 estradiol 35 mcg tablet (Sprintec days #28 tabs (28)) amoxicillin 875 mg-potassium 1 tab PO Q12H #20 tabs 09/09/23 clavulanate 125 mg tablet xbsozezggorebmc-mxuraygqljgjrvf-SP 5 ml PO Q6H PRN Cough #240 mL 09/09/23 2 mg-30 mg-10 mg/5 mL oral syrup (Bromfed DM) guaifenesin 600 mg tablet, 600 - 1,200 mg PO BIDP PRN 09/09/23 extended release 12 hr (Mucinex) Congestion #30 tabs methylprednisolone 4 mg tablets in 4 mg PO DIRECTED #21 tabs 09/09/23 a dose pack Allergies Allergy/AdvReac Type Severity Reaction Status Date / Time azithromycin [AZITHROMYCIN] Allergy Unknown Unknown Verified 09/09/23 15:24 allergy reaction coconut Allergy Swelling Verified 09/09/23 15:24 of Lip/Tongue/Throat fluconazole [From Diflucan] AdvReac Palpitation Verified 09/09/23 15:24 s PFSH PFSH Disclaimer: The information contained in this section may have been updated after the patient was seen, as this information can be updated by other users. Medical History Acute bronchitis Allergic rhinitis Asthma Bronchitis Chest pain Cryptogenic stroke Dyspnea Left against medical advice Normal Pap smear 12/2020 Otitis media Otitis media, left Palpitations PND (post-nasal drip) Strep throat Thoracic back pain URI (upper respiratory infection) URI (upper respiratory infection) UTI (urinary tract infection) Viral upper respiratory illness Wheezing Surgical History History of appendectomy History of cholecystectomy History of hysterectomy History of loop recorder History of spinal fusion fo
--- NOTE | 2023-09-09 15:23 | XR_ITS ---
FINAL REPORT CLINICAL HISTORY: cough COMPARISON: 11/23/2019 FINDINGS: TWO-VIEW CHEST The heart size is normal. The mediastinum is normal. The lungs are clear. There is no pneumothorax. The osseous structures demonstrate dextroscoliosis. Spinal rods are identified. IMPRESSION: No acute cardiopulmonary process. Reviewed, Interpreted and Dictated by Kaushik Heredia III, MD Transcribed by Isabella Meadows Authenticated and . [facility]
[2023-09-09 15:33] LABS: UTC Strep Screen (Rapid) Negative (Negative)
[2023-09-09 16:25] VITALS: BP 130/96; PULSE 65; RESP 18; TEMP 36.6; O2SAT 96
== END 2023-09-09 16:24 | disposition home or self-care (01) ==
PROVIDERS: Emergency Provider Nurse Practitioner Family
DX: J20.9 Acute bronchitis, unspecified (principal); J01.90 Acute sinusitis, unspecified; R09.89 Other specified symptoms and signs involving the circulatory and respiratory systems; R09.81 Nasal congestion; J45.909 Unspecified asthma, uncomplicated; Z87.891 Personal history of nicotine dependence
CPT/HCPCS: 71046; 87635; 87880; 99212; 99214; G0463

== ENCOUNTER 2023-11-26 14:44 | Emergency (ER) | payer OTHER, SELFPAY ==
[2023-11-26 15:45] VITALS: BP 134/78; PULSE 77; RESP 18; TEMP 36.9; O2SAT 98; BMI 22.4
--- NOTE | 2023-11-26 16:02 | EXP.UTC ---
Discharge Plan Prescriptions Prescriptions: No Action cetirizine [Zyrtec] 10 mg tablet 10 mg PO DAILY albuterol sulfate 90 mcg/actuation HFA aerosol inhaler See Rx Instructions .ROUTE .COMPLEX Qty: 8.5 0RF Dose Instruction: INHALE 1 PUFF BY MOUTH 4 TIMES DAILY NEEDED Rx Instructions: INHALE 1 PUFF BY MOUTH 4 TIMES DAILY NEEDED norgestimate-ethinyl estradiol [Sprintec (28)] 0.25-35 mg-mcg tablet 1 tab PO DAILY 28 Days Qty: 28 1RF ezmzldrydtfdyqy-kwqrxdnlz-CX [Bromfed DM] 2-30-10 mg/5 mL Syrup 5 ml PO Q6H PRN (Reason: Cough) Qty: 240 0RF amoxicillin-pot clavulanate 875-125 mg Tablet 1 tab PO Q12H Qty: 20 0RF methylprednisolone 4 mg Tablets,Dose Pack 4 mg PO DIRECTED Qty: 21 0RF guaifenesin [Mucinex] 600 mg tablet extended release 12hr 600 - 1,200 mg PO BIDP PRN (Reason: Congestion) Qty: 30 0RF Referrals Follow up/Referrals: Dalila Merino APRN [Primary Care Provider] - See instructions Discharge ED Provider: Adrianna Montes De Oca [facility] [place] HPI General Stated complaint: sore throat, ear pain, cough Mode of Arrival: Ambulatory Source of Information: Patient Limitations: No Limitations Time Seen by Provider: 11/26/23 16:02 Description of Symptoms (Recalled from Triage Doc. by RN): PATIENT C/O CHEST CONGESTION, COUGH, SINUS DRAINAGE, EAR ACHE, HEADACHE AND LUNG PAIN X 2 DAYS HEENT Symptoms (Recalled from RN notes): Yes Resp Symptoms (Recalled from RN notes): Yes Skin Symptoms (Recalled from RN notes): No MS Symptoms (Recalled from RN notes): No Functional Status (Recalled from RN notes): WNL History of Present Illness Provider Complaint: Patient states that she has been having bronchitis like symptoms but for the last couple of days she has been having sinus pain and pressure, sore throat, pain and pressure in her ears and burning in her lungs when she will cough States that today she was still not feeling any better so she came in to get checked Related Data Home Medications Medication Instructions Recorded Confirmed cetirizine 10 mg tablet (Zyrtec) 10 mg PO DAILY ALLERGIES 01/04/18 09/09/23 Previous Rx's Medication Instructions Recorded albuterol sulfate 90 mcg/actuation See Rx Instructions .Route 11/26/22 aerosol inhaler .COMPLEX #8.5 grams amoxicillin 875 mg-potassium 1 tab PO Q12H #20 tabs 09/09/23 clavulanate 125 mg tablet dvrlfqbiiyvpdyd-zqcwyvnbefvsjdy-ZW 5 ml PO Q6H PRN Cough #240 mL 09/09/23 2 mg-30 mg-10 mg/5 mL oral syrup (Bromfed DM) guaifenesin 600 mg tablet, 600 - 1,200 mg PO BIDP PRN 09/09/23 extended release 12 hr (Mucinex) Congestion #30 tabs methylprednisolone 4 mg tablets in 4 mg PO DIRECTED #21 tabs 09/09/23 a dose pack norgestimate 0.25 mg-ethinyl 1 tab PO DAILY control 28 11/24/23 estradiol 35 mcg tablet (Sprintec days #28 tabs (28)) Allergies Allergy/AdvReac Type Severity Reaction Status Date / Time azithromycin [AZITHROMYCIN] Allergy Unknown Unknown Verified 09/09/23 15:24 allergy reaction coconut Allergy Swelling Verified 09/09/23 15:24 of Lip/Tongue/Throat fluconazole [From Diflucan] AdvReac Palpitation Verified 09/09/23 15:24 s Worker's Comp Is this a Worker's Comp case?: No [facility] Disclaimer: The information contained in this section may have been updated after the patient was seen, as this information can be updated by other users. Medical History Acute bronchitis Allergic rhinitis Asthma Bronchitis Chest pain Cryptogenic stroke Dyspnea Left against medical advice Normal Pap smear 12/2020 Otitis media Otitis media, left Palpitations PND (post-nasal drip) Strep throat Thoracic back pain URI (upper respiratory infection) URI (upper respiratory infection) UTI (urinary tract infection) Viral upper respiratory illness Wheezing Surgical History History of appendectomy History of cholecystectomy History of hysterectomy History of loop recorder History of spinal fusion for scoliosis History of tonsillectomy Family History Father Cancer colon Coronary artery disease Mother Hypertension Hyperlipidemia Social History Smoking Status: Former smoker tobacco type: cigarettes packs per day: 1 quit status: has quit before second hand exposure: Yes alcohol intake: never counseling provided: none substance use type: denies use current occupational status: employed and other Travel in the last 8 weeks: None household members: significant other housing: apartment lives independently: Yes marital status: single education level: high school sexually active: Yes caffeine: Yes special lulu needs: No agree to transfusion: No do you feel safe at home: Yes victim of physical abuse: No victim of emotional abuse: No victim of sexual abuse: No would you like helpful sources: No ROS Obtained: Yes All systems reviewed & no additional complaints except as documented and Yes Systems reviewed as appropriate & no additional complaints except as documented Constitutional Constitutional: Reports system reviewed and no additional complaints, except as documented, Reports as per HPI and Reports headache(s) ENT Ears, Nose, Mouth, and Throat: Reports system reviewed and no additional complaints, except as documented, Reports as per HPI, Reports otalgia, Reports headache(s), Reports sinus pain, Reports sinus pressure and Reports sore throat Cardiovascular Cardiovascular: Reports system reviewed and no additional complaints, except as documented and Reports as per HPI Respiratory Respiratory: Reports system reviewed and no additional complaints, except as documented, Reports as per HPI, Denies shortness of breath, Reports chest congestion and Reports cough Gastrointestinal Gastrointestingal: Reports system reviewed and no additional complaints, except as documented and as per HPI Neurologic Neurologic: Reports headache(s) Physical Exam General General appearance: alert and in no apparent distress ENT ENT exam: Present mucous membranes moist Expanded ENT Exam TM/Canal exam: Bilateral TM: bulging Nose exam: Present sinus tenderness Throat exam: Present other (Pharyngeal erythema noted with PND) Respiratory Respiratory exam: Present normal lung sounds bilaterally; Absent respiratory distress or wheezes Cardiovascular Cardiovascular exam: Present regular rate, normal rhythm and normal heart sounds Abdominal Exam Abdominal exam: Present soft and normal bowel sounds; Absent distention or tenderness Neurological Exam Neurological exam: Present alert, oriented X3 and normal gait Medical Decision Making Aniceto Inquiry Pt receiving controlled substance: No Aniceto was queried for this patient: No Vital Signs: 11/26/23 15:45 Temperature 98.4 F Temperature Source Oral Pulse Rate [Left Brachial] 77 Respiratory Rate 18 Blood Pressure [Left Arm] 134/78 Blood Pressure Mean [Left Arm] 96 Blood Pressure Source [Left Arm] Automatic Cuff Blood Pressure Position [Left Arm] Sitting 02 Sat by Pulse Oximetry 98 Oxygen Delivery Method Room Air Lab Data Lab results reviewed: Yes I reviewed the patient's lab results.
[2023-11-26 16:24] LABS: UTC Strep Screen (Rapid) Negative (Negative)
[2023-11-26] MEDS: cefTRIAXone 1GM VIAL 1 GM IM (16:42)
[2023-11-26] MEDS: METHYLPREDNISOLONE SOD SUCC 125MG VIAL 125 MG IM (16:42)
[2023-11-26] MEDS: LIDOCAINE 1% 5ML PF VIAL IM (16:42)
[2023-11-26 16:45] VITALS: BP 134/78; PULSE 77; RESP 18; TEMP 36.9; O2SAT 98
== END 2023-11-26 16:53 | disposition home or self-care (01) ==
PROVIDERS: Emergency Provider Nurse Practitioner; PCP Nurse Practitioner
DX: J20.9 Acute bronchitis, unspecified (principal); J01.90 Acute sinusitis, unspecified; R07.0 Pain in throat; H92.03 Otalgia, bilateral; R09.81 Nasal congestion; R05.9 Cough, unspecified; Z87.891 Personal history of nicotine dependence
CPT/HCPCS: 87880; 96372; 99212; 99214; G0463; J0696

== ENCOUNTER 2024-10-25 13:33 | Outpatient (CLI) | payer OTHER, SELFPAY ==
[2024-10-25 12:56] LABS: Coronavirus 19, PCR Not Detected (NotDetected); Human Rhinovirus Not Detected (NotDetected); Influenza A, PCR Not Detected (NotDetected); Influenza B, PCR Not Detected (NotDetected); Respiratory Syncytial Virus Not Detected (NotDetected)
== END 2024-10-25 23:59 | disposition home or self-care (01) ==
LOC: LAB.DROPOF 13:33
PROVIDERS: PCP Nurse Practitioner Family; Visit Provider Nurse Practitioner Family
DX: R51.9 Headache, unspecified (principal); R09.81 Nasal congestion; R53.83 Other fatigue; H66.93 Otitis media, unspecified, bilateral; J20.9 Acute bronchitis, unspecified; R26.81 Unsteadiness on feet; R68.89 Other general symptoms and signs
CPT/HCPCS: 87631

== ENCOUNTER 2024-10-28 16:40 | Emergency (ER) | payer OTHER, SELFPAY ==
[2024-10-28] VITALS (8 sets, daily range): BP systolic 104–144; BP diastolic 63–84; PULSE 64–84; RESP 14–20; TEMP 36.8–36.9; O2SAT 98–100; BMI 19.5
--- NOTE | 2024-10-28 17:58 | CT_ITS ---
PROCEDURE INFORMATION: Exam: CTA Neck With Contrast Exam date and time: 10/28/2024 6:40 PM Age: 29 years old Clinical indication: Pain; Headache; Additional info: Severe L headache, L sided numbness TECHNIQUE: Imaging protocol: Computed tomographic angiography of the neck with contrast. Exam focused on the cervical segments of the vasculature. 3D rendering (Not supervised by radiologist): MIP and/or 3D reconstructed images were created by the technologist. Radiation optimization: All CT scans at this facility use at least one of these dose optimization techniques: automated exposure control; mA and/or kV adjustment per patient size (includes targeted exams where dose is matched to clinical indication); or iterative reconstruction. Contrast material: ISOVUE 370; Contrast volume: 80 ml; Contrast route: INTRAVENOUS (IV); COMPARISON: CT ANGIO HEAD 28/10/2024 18:40 FINDINGS: Right common carotid artery: No stenosis. No dissection or occlusion. Right internal carotid artery: 0% stenosis of the right internal carotid artery per NASCET criteria. Right external carotid artery: No occlusion or stenosis of the origin. Left common carotid artery: No stenosis. No dissection or occlusion. Left internal carotid artery: 0% stenosis of the left internal carotid artery per NASCET criteria. Left external carotid artery: No occlusion or stenosis of the origin. Right vertebral artery: No stenosis. No dissection or occlusion. Left vertebral artery: No stenosis. No dissection or occlusion. Soft tissues: Normal. No significant soft tissue swelling. Bones/joints: Postsurgical changes of the thoracic spine. Lungs: Bilateral apical scarring. Other findings: Stigmata of old granulomatous disease. IMPRESSION: No significant stenosis of the carotid and vertebral arteries. REFERENCES: NASCET CRITERIA. The degree of stenosis in the cervical segment of the internal carotid artery is based on NASCET criteria. Normal is no stenosis. Mild is less than 50% stenosis. Moderate is 50-69% stenosis. Severe is 70% to 99% stenosis. Total occlusion is no detectable patent lumen.
--- NOTE | 2024-10-28 17:58 | CT_ITS ---
PROCEDURE INFORMATION: Exam: CT Head Without Contrast Exam date and time: 10/28/2024 6:34 PM Age: 29 years old Clinical indication: Pain; Headache; Additional info: Severe L headache, L sided numbness TECHNIQUE: Imaging protocol: Computed tomography of the head without contrast. Radiation optimization: All CT scans at this facility use at least one of these dose optimization techniques: automated exposure control; mA and/or kV adjustment per patient size (includes targeted exams where dose is matched to clinical indication); or iterative reconstruction. COMPARISON: HEADWO CT head/brain wo con 24/12/2017 20:36 FINDINGS: Brain: Normal. No hemorrhage. Unremarkable white matter. No mass effect. Cerebral ventricles: No ventriculomegaly. Paranasal sinuses: Small retention cysts in the paranasal sinuses. Mastoid air cells: Visualized mastoid air cells are well aerated. Nasal cavity: Left willi bullosa. Bones: Unremarkable. No acute fracture. Soft tissues: Unremarkable. IMPRESSION: No acute intracranial findings. If there is high clinical concern for acute infarction, consider MRI for further evaluation. ASSESSMENT: ASPECTS score ([place] Stroke Program Early CT Score) is 10.
--- NOTE | 2024-10-28 17:58 | CT_ITS ---
PROCEDURE INFORMATION: Exam: CTA Head With Contrast, Arteriography Exam date and time: 10/28/2024 6:40 PM Age: 29 years old Clinical indication: Pain; Headache; Additional info: Severe L headache, L sided numbness TECHNIQUE: Imaging protocol: Computed tomographic angiography of the head with contrast. Exam focused on the arteries. 3D rendering (Not supervised by radiologist): MIP and/or 3D reconstructed images were created by the technologist. Radiation optimization: All CT scans at this facility use at least one of these dose optimization techniques: automated exposure control; mA and/or kV adjustment per patient size (includes targeted exams where dose is matched to clinical indication); or iterative reconstruction. Contrast material: ISOVUE 370; Contrast volume: 80 ml; Contrast route: INTRAVENOUS (IV); COMPARISON: CT HEAD/BRAIN WO CON 28/10/2024 18:34 FINDINGS: ANTERIOR CIRCULATION: Right internal carotid artery: Intracranial segment is patent with no significant stenosis. No aneurysm. Right middle cerebral artery: No occlusion or significant stenosis. No aneurysm. Right anterior cerebral artery: No occlusion or significant stenosis. No aneurysm. Left internal carotid artery: Intracranial segment is patent with no significant stenosis. No aneurysm. Left middle cerebral artery: No occlusion or significant stenosis. No aneurysm. Left anterior cerebral artery: No occlusion or significant stenosis. No aneurysm. POSTERIOR CIRCULATION: Right vertebral artery: No occlusion or significant stenosis. No aneurysm. Left vertebral artery: No occlusion or significant stenosis. No aneurysm. Basilar artery: No occlusion or significant stenosis. No aneurysm. Right posterior cerebral artery: No occlusion or significant stenosis. No aneurysm. Left posterior cerebral artery: configuration of the left OUTBOARD SYSTEM OPERATOR. Brain: No definite mass, mass effect, or midline shift. Cerebral ventricles: No ventriculomegaly. Bones/joints: Unremarkable. No acute fracture. Soft tissues: Unremarkable. IMPRESSION: No significant intracranial arterial abnormality.
--- NOTE | 2024-10-28 18:01 | ED_ITS ---
Discharge Plan Disposition Patient Disposition: Home, Self-Care Condition: Good Prescriptions Prescriptions: No Action cetirizine [Zyrtec] 10 mg tablet 10 mg PO DAILY norgestimate-ethinyl estradiol [Sprintec (28)] 0.25-35 mg-mcg tablet 1 tab PO DAILY Qty: 84 3RF albuterol sulfate 2.5 mg /3 mL (0.083 %) solution for nebulization 2.5 mg inhalation Q4-6H PRN (Reason: bronchospasm) Qty: 90 0RF Airsupra 90-80 mcg/actuation HFA aerosol inhaler 2 inh inhalation 6XD PRN (Reason: wheezing ) Qty: 10.7 0RF amoxicillin-pot clavulanate 875-125 mg tablet 1 tab PO BID 10 Days Qty: 20 0RF tuwivyvobmnleet-ghdsiafwy-PV [Bromfed DM] 2-30-10 mg/5 mL syrup 10 ml PO Q4-6H PRN (Reason: cold symptoms) Qty: 118 0RF albuterol sulfate 90 mcg/actuation HFA aerosol inhaler See Rx Instructions .ROUTE .COMPLEX Qty: 8.5 0RF Dose Instruction: INHALE 1 PUFF BY MOUTH 4 TIMES DAILY NEEDED Rx Instructions: INHALE 1 PUFF BY MOUTH 4 TIMES DAILY NEEDED Referrals Follow up/Referrals: Sana Robles APRN [Primary Care Provider] - See instructions Activity Restrictions/Add. Instructions Additional Instructions/Restrictions: You were evaluated in the emergency department today. Please follow-up closely with neurology at as scheduled. Return to the emergency department right away for new or worsening symptoms. Clinical Impressions Clinical Impression: Headache, Multiple neurological symptoms Stand Alone Forms Stand Alone Forms: Work/School Release Instructions Patient Instructions: DI for Migraine Print Language Print Language: Faroese Discharge ED Provider: Vannessa Borrero General Adult HPI General Chief complaint: Neuro Symptoms/Deficit Stated complaint: Head pressure head,sharp pain in head & neck Time Seen by Provider: 10/28/24 17:57 History of Present Illness HPI narrative: This patient is a 29-year-old female with a history of migraines and scoliosis presenting to the emergency department for evaluation with concern for 1 week of headache with intermittent blurred vision and sharp stabbing pains on the left side of her head. She also states that she has subjective decrease sensation on the left side of her body. She was seen at 3 days ago for similar issues, at which point neurology was consulted. On medical record review, it looks like they believe that she may have some version of occipital neuralgia given her recurrent intermittent symptoms, and they felt she was appropriate for discharge home with follow-up as an outpatient after workup they have been reassuring. Symptoms been persistent, so patient came here to see if she could potentially get seen by neurology sooner. No other new symptoms, such as fevers or infectious symptoms, new neurologic deficits, or other concerns. Related Data Home Medications ?Medication ?Instructions ?Recorded ?Confirmed cetirizine 10 mg tablet (Zyrtec) 10 mg PO DAILY ALLERGIES 01/04/18 10/28/24 Previous Rx's ?Medication ?Instructions ?Recorded albuterol sulfate 90 mcg/actuation See Rx Instructions .Route 11/26/22 aerosol inhaler .COMPLEX #8.5 grams norgestimate 0.25 mg-ethinyl 1 tab PO DAILY control #84 12/28/23 estradiol 35 mcg tablet (Sprintec tabs (28)) albuterol 90 mcg-budesonide 80 2 inh inhalation 6XD PRN wheezing 07/20/24 mcg/actuation HFA aerosol inhaler #10.7 grams (Airsupra) albuterol sulfate 2.5 mg/3 mL 2.5 mg (3 mL) inhalation Q4-6H PRN 07/20/24 (0.083 %) solution for nebulization bronchospasm #90 mL amoxicillin 875 mg-potassium 1 tab PO BID 10 days #20 tabs 10/25/24 clavulanate 125 mg tablet zubzshhtwmaswbk-yoeaogcnpmcpsgg-ZV 10 ml PO Q4-6H PRN cold symptoms 10/25/24 2 mg-30 mg-10 mg/5 mL oral syrup #118 mL (Bromfed DM) Allergies Allergy/AdvReac Type Severity Reaction Status Date / Time azithromycin (AZITHROMYCIN) Allergy Unknown Unknown Verified 10/28/24 10:20 allergy reaction coconut Allergy Swelling Verified 10/28/24 10:20 of Lip/Tongue/Throat gabapentin Allergy Confusion Verified 10/28/24 18:47 fluconazole (From Diflucan) AdvReac Palpitation Verified 10/28/24 10:20 s PFSH PFS Disclaimer: The information contained in this section may have been updated after the patient was seen, as this information can be updated by other users. Medical History Asthma Cryptogenic stroke Palpitations Dyspnea Chest pain Otitis media Surgical History History of loop recorder History of spinal fusion for scoliosis Family History Father Coronary artery disease Mother Hypertension Hyperlipidemia Family/Other Cancer Social History Smoking Status: Current every day smoker tobacco type: cigarettes packs per day: 1 quit status: has quit before second hand exposure: Yes alcohol intake: current alcohol intake frequency: a few times a month counseling provided: none substance use type: denies use current occupational status: employed and other Travel in the last 8 weeks: None household members: significant other housing: apartment lives independently: Yes marital status: single education level: high school sexually active: Yes caffeine: Yes special lulu needs: No agree to transfusion: No do you feel safe at home: Yes victim of physical abuse: No victim of emotional abuse: No victim of sexual abuse: No would you like helpful sources: No Have you lived/traveled outside [place] in past 30 days?: No Contact w/someone who lives/traveled outside US past 30 days?: No Exposure to someone with infectious disease in past 14 days?: No Do you have a fever (greater than 100.4 F or 38 C)?: No Have you tested positive for COVID-19: No Exposed to someone with COVID-19 in past 14 days?: No Do you have a sore throat?: No Do you have a cough?: No Do you have any weakness?: No Do you have any diarrhea?: No Are you experiencing any unusual bleeding?: No Do you have any muscle aches/pain?: No Do you have any abdominal pain?: No Are you experiencing loss of taste or smell?: No Other Medical History Have you received the Flu Vaccine for this season: Yes Have you received the Pneumonia Vaccine: No ROS Obtained: Yes All systems reviewed & no additional complaints except as documented Physical Exam General General appearance: alert and in no apparent distress Head Head exam: atraumatic and normocephalic Eye Eye exam: Present normal appearance, PERRL and EOMI ENT ENT exam: Present normal exam, normal oropharynx, mucous membranes moist and normal external ear exam Neck Neck exam: Present normal inspection, full ROM and trachea midline; Absent tenderness Chest Chest inspection: Present normal inspection and symmetric chest wall rise; Absent tenderness Respiratory Respiratory exam: Present normal lung sounds bilaterally; Absent respiratory distress, wheezes, stridor or accessory muscle use Cardiovascular Cardiovascular exam: Present regular rate and normal rhythm Abdominal Exam Abdominal exam: Present soft; Absent distention, tenderness or guarding Extremities Exam Extremities exam: Present normal inspection, full ROM and normal capillary refill; Absent tenderness or edema Back Exam Back exam: Present normal inspection and full ROM; Absent tenderness Neurological Exam Neurological exam: Present alert, normal gait, motor sensory deficit and other (Subjective decrease in sensation of the left side of the body); Absent oriented X3 (Slow to answer questions, answered with the wrong month) Psychiatric Psychiatric exam: Present flat affect Skin Skin exam: Present warm and dry Medical Decision Making Medical Records Medical records reviewed: Yes I reviewed the patient's medical records. Screening: Per USPSTF and CDC recommendations, given the prevalence of disease in our region, it is our hospital?s policy to screen for HIV and viral Hepatitis for all patients aged 18 and over and those with ongoing risk factors. Aniceto Inquiry Pt receiving controlled substance: No Vital Signs: 10/28/24 17:50 10/28/24 18:05 10/28/24 18:10 Temperature 98.2 F Temperature Source Oral Pulse Rate 79 64 Pulse Rate [Left] 84 Respiratory Rate 14 Blood Pressure 128/82 134/78 Blood Pressure [Right Arm] 144/84 H Blood Pressure Mean [Right Arm] 104 Blood Pressure Source Blood Pressure Source [Right Arm] Automatic Cuff Blood Pressure Position Blood Pressure Position [Right Arm] Sitting 02 Sat by Pulse Oximetry 98 99 99 Oxygen Delivery Method Room Air 10/28/24 18:15 10/28/24 18:20 10/28/24 18:25 Temperature Temperature Source Pulse Rate 65 67 75 Pulse Rate [Left] Respiratory Rate Blood Pressure 135/73 140/81 129/74 Blood Pressure [Right Arm] Blood Pressure Mean [Right Arm] Blood Pressure Source Blood Pressure Source [Right Arm] Blood Pressure Position Blood Pressure Position [Right Arm] 02 Sat by Pulse Oximetry 99 99 100 Oxygen Delivery Method 10/28/24 18:33 10/28/24 21:15 Temperature 98.4 F Temperature Source Oral Pulse Rate 73 74 Pulse Rate [Left] Respiratory Rate 20 Blood Pressure 125/63 104/75 L Blood Pressure [Right Arm] Blood Pressure Mean [Right Arm] Blood Pressure Source Automatic Cuff Blood Pressure Source [Right Arm] Blood Pressure Position Sitting Blood Pressure Position [Right Arm] 02 Sat by Pulse Oximetry 99 Oxygen Delivery Method Room Air Lab Data Lab results reviewed: Yes I reviewed the patient's lab results. Lab Results 10/28/24 18:03: WBC 9.4, RBC 4.82, Hgb 14.8, Hct 42.8, MCV 88.8, MCH 30.7, MCHC 34.6, RDW 11.5, Plt Count 383, MPV 9.8, Neut % (Auto) 65.7, Lymph % (Auto) 28.3, Stephens % (Auto) 3.6, Eos % (Auto) 1.6, Baso % (Auto) 0.6, Neut # (Auto) 6.2, Lymph # (Auto) 2.7, Stephens # (Auto) 0.3, Eos # (Auto) 0.2, Baso # (Auto) 0.1, Sodium 140, Potassium 3.7, Chloride 105, Carbon Dioxide 26, Anion Gap 12.7, BUN 6 L, Creatinine 0.60, Estimated GFR 117, Est GFR ( Amer) 141, Glucose 102 H, Calcium 9.3, Magnesium 2.1, Total Bilirubin 0.5, AST 29, ALT 17, Alkaline Phosphatase 36 L, Total Protein 7.7, Albumin 4.8, Globulin 2.9, Albumin/Globulin Ratio 1.7, TSH 1.96, Thyroxine (T4) 13.2 H, Serum HCG, Qual Negative, HCV Ab TASHIA w/Rflx PCR Qn Negative, HIV Ag/Ab Combo Qual Negative 10/28/24 18:05: SARS-CoV-2 (PCR) Not detected, Influenza A Untype (PCR) Not detected, Influenza Type B (PCR) Not detected 10/28/24 18:35: Urine Opiates Screen Negative, Urine Methadone Screen Negative, Ur Barbituates Screen Negative, Ur Phencyclidine Scrn Negative, Ur Amphetamines Screen Negative, U Benzodiazepines Scrn Negative, Urine Cocaine Screen Negative, U Marijuana (THC) Screen Negative 10/28/24 18:03 10/28/24 18:03 Orders (Tests/Meds): ED MEDICATIONS Discontinued Medications Generic Name Dose Route Start Last Admin Trade Name Jacquelyn PRN Reason Stop Dose Admin Acetaminophen 1,000 mg 10/28/24 17:58 10/28/24 18:14 Acetaminophen 1,000mg/100ml Vial IV 10/28/24 17:59 1,000 mg ONCE ONE Administration Diphenhydramine HCl 25 mg 10/28/24 17:58 10/28/24 18:14 Diphenhydramine 50mg/Ml Vial IV 10/28/24 17:59 25 mg ONCE ONE Administration Lactated Ringer's 1,000 mls @ 999 mls/hr 10/28/24 17:58 10/28/24 18:14 Lactated Ringer's 1000 Ml Bag IV 10/28/24 18:58 999 mls/hr .Q1H1M ONE Administration Iopamidol 80 ml 10/28/24 18:41 10/28/24 18:46 Iopamidol-370 (76%);100ml Bottle IV 10/28/24 18:42 80 ml ONCE ONE Administration Ketorolac Tromethamine 15 mg 10/28/24 17:58 10/28/24 18:13 Ketorolac 30mg/Ml Vial IV 10/28/24 17:59 15 mg ONCE ONE Administration Metoclopramide HCl 5 mg 10/28/24 17:58 10/28/24 18:13 Metoclopramide Hcl 10mg/2ml Vial IVP 10/28/24 17:59 5 mg ONCE ONE Administration Sodium Chloride 40 ml 10/28/24 18:41 10/28/24 18:46 0.9 % Sodium Chloride 50 Ml Vial IV 10/28/24 18:42 40 ml ONCE ONE Administration Sodium Chloride 10 ml 10/28/24 18:41 10/28/24 18:46 Sodium Chloride 0.9% 10ml Syr (Rad Only) IV 10/28/24 18:42 10 ml ONCE ONE Administration ORDERS Category Date Time Status CT angio head Stat Cat Scan 10/28/24 17:[address] angio neck Stat Cat Scan 10/28/24 17:[address] head/brain wo con Stat Cat Scan 10/28/24 17:58 Completed Complete Blood Count Auto Diff Stat Lab 10/28/24 18:03 Completed Comprehensive Metabolic Panel Stat Lab 10/28/24 18:03 Completed HIV Combo Stat Lab 10/28/24 18:03 Completed Hepatitis C Ab Qual. W/ RFX Stat Lab 10/28/24 18:03 Completed MAG [Magnesium] Stat Lab 10/28/24 18:03 Completed Rapid PCR Covid and Flu A/B Stat Lab 10/28/24 18:05 Completed Serum [HCG Qualitative, Serum] Stat Lab 10/28/24 18:03 Completed T4 (Thyroxine) Stat Lab 10/28/24 18:03 Completed TSH [Thyroid Stimulating Hormone] Stat Lab 10/28/24 18:03 Completed UDS [Drug Screen,Urine] Stat Lab 10/28/24 18:35 Completed Medical Decision Narrative: In summary, this patient is a 29-year-old female presenting to the Emergency Department for evaluation of persistent headache, blurred vision, left-sided sensory deficits for 1 week. Differential diagnoses considered include but are not limited to complex migraine, occipital neuralgia, CVA, intracranial hemorrhage, intracranial mass. Ruling out the most morbid conditions drove assessment. It should be noted patient's history includes migraines which likely are not at goal therapy. This complicates all aspects of care by increasing patient's risk for morbidity. I reviewed patient's past medical records and noted evaluation at 3 days ago for similar symptoms as well as neurology recommendations. They felt she likely has occipital neuralgia and they feel she is appropriate for discharge with close outpatient follow-up for further evaluation and management.. Workup included CBC, CMP, TSH, T4, CT head, CT angiogram of the head and neck. Patient was given migraine cocktail including IV Toradol, Reglan, Benadryl, fluids. Patient arrives with an NIH stroke scale of 2 for subjective sensory deficit on the left side and she answered the month incorrectly. Otherwise, her exam is reassuring. She is afebrile with reassuring vital signs on cardiac telemetry. I independently interpreted CT scan prior to the radiologist read and noted no obvious large intracranial hemorrhage or space-occupying lesion. Please see their read for final interpretation. Labs were obtained that demonstrated reassuring CBC and chemistry, negative test. On reassessment, patient had some improvement after administration of interventions above but continues to have headache and blurred vision. At this point, I advised that I could call for neurology/ophthalmology consult at other hospital, such as [facility], or other higher level of care with neurology, as we do not have the services here. She is outside of any sort of window for any intervention if this could be strokelike symptoms, and there is no evidence of other acute emergent pathology on CT scan. Patient states that she would rather just try going home and asks for a work excuse for 2 weeks if she can figure out all the things on an outpatient basis. I did give her a brief work excuse as well as instructions for close outpatient follow-up. She was discharged via patient directed discharge in stable condition after all questions were answered. Strict return precautions were given as well. Critical Care Critical Care Time Critical Care Time: No
[2024-10-28 18:11] LABS: Coronavirus 19, PCR Not Detected (NotDetected); Influenza A, PCR Not Detected (NotDetected); Influenza B, PCR Not Detected (NotDetected)
[2024-10-28] MEDS: KETOROLAC 30MG/ML VIAL 15 MG IV (18:13)
[2024-10-28] MEDS: METOCLOPRAMIDE HCL 10MG/2ML VIAL 5 MG IVP (18:13)
[2024-10-28] MEDS: ACETAMINOPHEN 1,000MG/100ML VIAL 1000 MG IV (18:14)
[2024-10-28] MEDS: LACTATED RINGERS 1000ML 1,000 ML 999 ML IV (18:14)
[2024-10-28] MEDS: diphenhydrAMINE 50MG/ML VIAL 25 MG IV (18:14)
[2024-10-28 18:15] LABS: Basophils # 0.1 K/mm3 (0-0.2)
[2024-10-28 18:23] LABS: HCG Qualitative, Serum Negative (Negative)
[2024-10-28 18:27] LABS: Albumin Level 4.8 g/dl (3.5-5.0); Chloride 105 mmol/L (98-107)
[2024-10-28 18:28] LABS: Potassium 3.7 mmoL/L (3.5-5.1); Sodium 140 mmol/L (136-145)
[2024-10-28 18:30] LABS: Alanine Aminotransferase 17 U/L (12-78); Alkaline Phosphatase 36 U/L (38-126); Anion Gap 12.7 mEq/L (5-15); Aspartate Amino Transferase 29 U/L (14-36); Bilirubin,Total 0.5 mg/dl (0.2-1.3); Blood Urea Nitrogen 6 mg/dl (7-17); Carbon Dioxide 26 mmol/L (22.0-30.0); Estimated Glomerular Filt Rate 117 ml/min (>60); GFR (African American) 141 ML/MIN (>60)
[2024-10-28 18:31] LABS: Albumin/Globulin Ratio 1.7 (1.1-1.8); Calcium 9.3 mg/dl (8.4-10.2); Globulin 2.9 g/dL (1.3-3.2); Glucose 102 mg/dl (74-100); Magnesium 2.1 mg/dl (1.6-2.3); Total Protein,Serum 7.7 g/dl (6.3-8.2)
[2024-10-28 18:32] LABS: Eosinophils # 0.2 K/mm3 (0.0-0.4); Eosinophils % 1.6 % (0.1-12.0); Hemoglobin 14.8 g/dL (12.2-16.2); Lymphocytes # 2.7 K/mm3 (0.7-4.5); Lymphocytes % 28.3 % (10-50); Mean Corpuscular Volume 88.8 fl (81-99); Red Cell Distribution Width 11.5 % (11.5-17.5); White Blood Count 9.4 K/mm3 (4.8-10.8)
[2024-10-28 18:36] LABS: Basophils % 0.6 % (0.1-2.0); Hematocrit 42.8 % (37.0-47.0); Mean Corpuscular HGB Conc 34.6 g/dL (31.8-35.4); Mean Corpuscular Hemoglobin 30.7 pg (27.0-31.2); Mean Platelet Volume 9.8 fl (7.4-10.4); Monocytes # 0.3 K/mm3 (0.1-1.0); Monocytes % 3.6 % (1.7-9.3); Neutrophils # 6.2 K/mm3 (1.8-7.8); Neutrophils % 65.7 % (37.0-80.0); Platelet Count 383 K/mm3 (142-424); Red Blood Count 4.82 M/mm3 (4.20-5.40)
[2024-10-28] MEDS: 0.9 % SODIUM CHLORIDE 50 ML VIAL 40 ML IV (18:46)
[2024-10-28] MEDS: SODIUM CHLORIDE 0.9% 10ML SYR (RAD ONLY) 10 ML IV (18:46)
[2024-10-28] MEDS: IOPAMIDOL-370 (76%);100ML BOTTLE 80 ML IV (18:46)
[2024-10-28 18:48] LABS: T4 (Thyroxine) 13.2 ug/dl (5.53-11.0)
[2024-10-28 18:56] LABS: Amphetamine/Metha Screen,Urine Negative ng/ml (<1000)
[2024-10-28 18:57] LABS: Barbiturates Screen,Urine Negative ng/ml (<200); Benzodiazepines Screen,Urine Negative ng/ml (<200)
[2024-10-28 19:01] LABS: Opiate Screen,Urine Negative ng/ml (<300)
[2024-10-28 19:02] LABS: Phencyclidine Screen,Urine Negative ng/ml (<25)
[2024-10-28 19:02] LABS: Thyroid Stimulating Hormone 1.96 uIU/mL (0.465-4.68)
[2024-10-28 19:07] LABS: Cannabinoid Screen,Urine Negative ng/ml (<50); Cocaine Screen,Urine Negative ng/ml (<300)
[2024-10-28 19:08] LABS: Methadone Screen,Urine Negative ng/ml (<300)
--- NOTE | 2024-10-28 19:26 | PC.NURSE ---
Report received from Alfredo STEVEN Pt awake alert and oriented Skin pink warm and dry Resp full and easy Speech clear and appropriate. IV site without redness or edema
[2024-10-28 19:46] LABS: HIV Combo NEGATIVE (Negative)
[2024-10-28 19:53] LABS: Hepatitis C Ab Qual. W/ RFX NEGATIVE (Negative)
== END 2024-10-28 21:21 | disposition home or self-care (01) ==
PROVIDERS: Emergency Provider Emergency Medicine; PCP Nurse Practitioner Family
DX: R29.90 Unspecified symptoms and signs involving the nervous system (principal); R51.9 Headache, unspecified; H53.8 Other visual disturbances; M54.2 Cervicalgia
CPT/HCPCS: 70450; 70496; 70498; 80053; 80307; 83735; 84436; 84443; 84703; 85025; 86803; 87389; 87636; 96361; 96374; 96375; 99285; J0131; J1200; J1885; J2765; J7120; Q9967

== ENCOUNTER 2024-11-01 00:53 | Emergency (ER) | payer OTHER, SELFPAY ==
[2024-11-01 00:54] VITALS: BP 153/108; PULSE 125; RESP 20; TEMP 37.1; O2SAT 97; BMI 19.5
--- NOTE | 2024-11-01 01:06 | CT_ITS ---
PROCEDURE INFORMATION: Exam: CT Cervical Spine Without Contrast Exam date and time: 11/01/2024 2:15 AM Age: 29 years old Clinical indication: Other: Neck pain PT reports weak bue TECHNIQUE: Imaging protocol: Computed tomography of the cervical spine without contrast. Total images: 296 Radiation optimization: All CT scans at this facility use at least one of these dose optimization techniques: automated exposure control; mA and/or kV adjustment per patient size (includes targeted exams where dose is matched to clinical indication); or iterative reconstruction. COMPARISON: CT ANGIO NECK 10/28/2024 6:40 PM FINDINGS: Bones: Straightened cervical lordosis. Vertebral body height and alignment is maintained. The base of the dens and the C1 and C2 articulations are preserved. The cervicooccipital junction is intact. The facet joints are appropriately aligned. Posterior elements are intact. Disc space heights are appropriate for age. No disc herniation, spinal canal stenosis, or neural foraminal encroachment. No concerning bone lesions. Partially included posterior fusion hardware in the thoracic spine. Prevertebral and retropharyngeal spaces: No prevertebral soft tissue swelling. Lungs: Lung apices are clear. Soft tissues: Unremarkable soft tissues of the neck. IMPRESSION: 1. Straightened cervical lordosis from position or muscle spasm. 2. Otherwise, unremarkable CT of the cervical spine.
--- NOTE | 2024-11-01 01:06 | CT_ITS ---
PROCEDURE INFORMATION: Exam: CT Thoracic Spine Without Contrast Exam date and time: 11/01/2024 2:17 AM Age: 29 years old Clinical indication: Other: Neck pain PT reports weak bue; Prior surgery; Surgery date: 6+ months; Surgery type: When PT was 12, scoliosis TECHNIQUE: Imaging protocol: Computed tomography of the thoracic spine without contrast. Radiation optimization: All CT scans at this facility use at least one of these dose optimization techniques: automated exposure control; mA and/or kV adjustment per patient size (includes targeted exams where dose is matched to clinical indication); or iterative reconstruction. COMPARISON: CR XR THORACIC SPINE 3V 06/11/2019 4:52 PM FINDINGS: Tubes, catheters and devices: The hardware appears intact. Bones/joints: Levo concave scoliosis. Status post posterior rods and transpedicular screws extending from T3 through T11. No bony abnormalities are noted. Soft tissues: Unremarkable. Lymph nodes: Some densely calcified mediastinal lymph nodes are present. IMPRESSION: 1. No acute process identified. 2. Levoconcave scoliosis status post posterior stabilization.
--- NOTE | 2024-11-01 01:07 | ED_ITS ---
Discharge Plan Disposition Patient Disposition: Home, Self-Care Condition: Good Prescriptions Prescriptions: No Action cetirizine [Zyrtec] 10 mg tablet 10 mg PO DAILY norgestimate-ethinyl estradiol [Sprintec (28)] 0.25-35 mg-mcg tablet 1 tab PO DAILY Qty: 84 3RF albuterol sulfate 2.5 mg /3 mL (0.083 %) solution for nebulization 2.5 mg inhalation Q4-6H PRN (Reason: bronchospasm) Qty: 90 0RF Airsupra 90-80 mcg/actuation HFA aerosol inhaler 2 inh inhalation 6XD PRN (Reason: wheezing ) Qty: 10.7 0RF amoxicillin-pot clavulanate 875-125 mg tablet 1 tab PO BID 10 Days Qty: 20 0RF lagkupmyelpedch-araornalm-VF [Bromfed DM] 2-30-10 mg/5 mL syrup 10 ml PO Q4-6H PRN (Reason: cold symptoms) Qty: 118 0RF albuterol sulfate 90 mcg/actuation HFA aerosol inhaler See Rx Instructions .ROUTE .COMPLEX Qty: 8.5 0RF Dose Instruction: INHALE 1 PUFF BY MOUTH 4 TIMES DAILY NEEDED Rx Instructions: INHALE 1 PUFF BY MOUTH 4 TIMES DAILY NEEDED Referrals Follow up/Referrals: Sana Robles APRN [Primary Care Provider] - See instructions Activity Restrictions/Add. Instructions Additional Instructions/Restrictions: You were evaluated in the ER and are appropriate for discharge at this time. Continue home medications as prescribed. Call your neurologist and try to get an appointment as soon as possible. I also recommend discussing the option of trigger point injection with them. Follow-up with ophthalmology as well. Return to the ER with new, worsening, or otherwise concerning symptoms. Clinical Impressions Clinical Impression: Muscle spasm, Neck pain, Back pain, thoracic Print Language Print Language: Congolese Discharge ED Provider: Kary Hull Adult HPI General Chief complaint: PAIN Stated complaint: severe pain head, neck, back Time Seen by Provider: 11/01/24 00:57 History of Present Illness HPI narrative: 29-year-old female with history of Marfan's, recent neurology visit at concerning for possible occipital neuralgia presents to the ER for complaints of neck and upper back pain. Patient and family at bedside report that patient has been evaluated by neurology and is suspected to have occipital neuralgia, she was seeing ophthalmology today and reportedly the eye doctor grabbed her head and moved it rapidly, patient heard an audible pop and since then has had pain in her neck and upper back. She reports a sensation of weakness in her upper extremities and an inability to rotate her head secondary to pain. Reportedly she has pain radiating throughout her back as a result of this. She ambulated independently into the ER. They report patient has taken Tylenol, ibuprofen, had Biofreeze applied to the back, and also took 10 mg of hydrocodone prior to arrival without improvement of symptoms. Patient and family want imaging to make sure nothing is broken or dislocated. Patient reports no vision changes, headache symptoms stable, she is here for the neck and back pain. She had 1 episode of emesis prior to arrival. She reports after the pain started she has had a lot of adrenaline and anxiety. She took Zofran for the nausea. Related Data Home Medications ?Medication ?Instructions ?Recorded ?Confirmed cetirizine 10 mg tablet (Zyrtec) 10 mg PO DAILY ALLERGIES 01/04/18 10/28/24 Previous Rx's ?Medication ?Instructions ?Recorded albuterol sulfate 90 mcg/actuation See Rx Instructions .Route 11/26/22 aerosol inhaler .COMPLEX #8.5 grams norgestimate 0.25 mg-ethinyl 1 tab PO DAILY control #84 12/28/23 estradiol 35 mcg tablet (Sprintec tabs (28)) albuterol 90 mcg-budesonide 80 2 inh inhalation 6XD PRN wheezing 07/20/24 mcg/actuation HFA aerosol inhaler #10.7 grams (Airsupra) albuterol sulfate 2.5 mg/3 mL 2.5 mg (3 mL) inhalation Q4-6H PRN 07/20/24 (0.083 %) solution for nebulization bronchospasm #90 mL amoxicillin 875 mg-potassium 1 tab PO BID 10 days #20 tabs 10/25/24 clavulanate 125 mg tablet kuabudykwvsekcu-emzgvmbzhyzgmup-VW 10 ml PO Q4-6H PRN cold symptoms 10/25/24 2 mg-30 mg-10 mg/5 mL oral syrup #118 mL (Bromfed DM) Allergies Allergy/AdvReac Type Severity Reaction Status Date / Time azithromycin (AZITHROMYCIN) Allergy Unknown Unknown Verified 10/28/24 10:20 allergy reaction coconut Allergy Swelling Verified 10/28/24 10:20 of Lip/Tongue/Throat gabapentin Allergy Confusion Verified 10/28/24 18:47 fluconazole (From Diflucan) AdvReac Palpitation Verified 10/28/24 10:20 s PFSH PFSH Disclaimer: The information contained in this section may have been updated after the patient was seen, as this information can be updated by other users. Medical History Asthma Cryptogenic stroke Palpitations Dyspnea Chest pain Otitis media Surgical History History of loop recorder History of spinal fusion for scoliosis Family History Father Coronary artery disease Mother Hypertension Hyperlipidemia Family/Other Cancer Social History Smoking Status: Current every day smoker tobacco type: cigarettes packs per day: 1 quit status: has quit before second hand exposure: Yes alcohol intake: current alcohol intake frequency: a few times a month counseling provided: none substance use type: denies use current occupational status: employed and other Travel in the last 8 weeks: None household members: significant other housing: apartment lives independently: Yes marital status: single education level: high school sexually active: Yes caffeine: Yes special lulu needs: No agree to transfusion: No do you feel safe at home: Yes victim of physical abuse: No victim of emotional abuse: No victim of sexual abuse: No would you like helpful sources: No Other Medical History Have you received the Flu Vaccine for this season: Yes Have you received the Pneumonia Vaccine: No ROS Obtained: Yes Systems reviewed as appropriate & no additional complaints except as documented per HPI Physical Exam General General appearance: alert Comment: tearful but independently ambulatory into the ER Head Head exam: atraumatic and normocephalic Eye Eye exam: Present PERRL and EOMI ENT ENT exam: Present mucous membranes moist Neck Neck exam: Present normal inspection and full ROM Chest Chest inspection: Present symmetric chest wall rise Respiratory Respiratory exam: Absent respiratory distress, wheezes or stridor Cardiovascular Cardiovascular exam: Present regular rate and normal rhythm Abdominal Exam Abdominal exam: Present soft; Absent distention or tenderness Extremities Exam Extremities exam: Present full ROM and normal capillary refill Back Exam Back exam: Present tenderness (Diffuse tenderness throughout the back both midline and paraspinal without any traumatic findings, no deformity or step-off, patient specifically has tenderness of the cervical spine and upper T-spine) Neurological Exam Neurological exam: Present alert, oriented X3, CN II-XII intact and normal gait; Absent motor sensory deficit (Movements and strength in bilateral upper extremities equal) Psychiatric Psychiatric exam: Present normal affect and normal mood Skin Skin exam: Present warm, dry and rash (Faint blanching reticular rash across the patient's back in the distribution of where she had the Biofreeze applied) Medical Decision Making Medical Records Medical records reviewed: Yes I reviewed the patient's medical records. Screening: Per USPSTF and CDC recommendations, given the prevalence of disease in our region, it is our hospital?s policy to screen for HIV and viral Hepatitis for all patients aged 18 and over and those with ongoing risk factors. MR Comment: I reviewed ophthalmology records from from patient's appointment on 10/31/2024. Patient had normal bilateral retinas, optic nerves, and fovea. Review of records from ophthalmology note demonstrates patient was only complaining of neck pain at the time of her evaluation on 10/31/24. She had been to [facility] on the same day for migraine cocktail per their note. Ophtho ordered trigger point injections and recommended naproxen based on my review of their note. Patient had normal intraocular pressures. They recommended follow-up in [address] imaging from patient's visit 4 days ago does not demonstrate acute intracranial or vascular abnormality in head or neck. Aniceto Inquiry Pt receiving controlled substance: No Vital Signs: 11/01/24 00:54 11/01/24 01:38 11/01/24 02:00 Temperature 98.7 F Temperature Source Oral Pulse Rate 113 H 82 Pulse Rate [Right Brachial] 125 H Respiratory Rate 20 Blood Pressure 125/86 113/76 Blood Pressure [Right Arm] 153/108 H Blood Pressure Mean 109 88 Blood Pressure Mean [Right Arm] 123 Blood Pressure Source [Right Arm] Automatic Cuff Blood Pressure Position [Right Arm] Supine 02 Sat by Pulse Oximetry 97 96 98 Oxygen Delivery Method Room Air Lab Data Lab Results 11/01/24 01:18: Urine HCG, Qual Negative 11/01/24 01:36: WBC 8.9, RBC 4.83, Hgb 14.5, Hct 42.1, MCV 87.2, MCH 30.0, MCHC 34.4, RDW 11.6, Plt Count 381, MPV 9.6, Neut % (Auto) 79.0, Lymph % (Auto) 17.3, [place] % (Auto) 2.7, Eos % (Auto) 0.2, Baso % (Auto) 0.6, Neut # (Auto) 7.0, Lymph # (Auto) 1.5, [place] # (Auto) 0.2, Eos # (Auto) 0.0, Baso # (Auto) 0.1, Sodium 138, Potassium 3.8, Chloride 105, Carbon Dioxide 24, Anion Gap 12.8, BUN 6 L, Creatinine 0.60, Estimated Creat Clear 122, Estimated GFR 117, Est GFR ( Amer) 141, Glucose 125 H, Calcium 9.7, Total Bilirubin 0.6, AST 33, ALT 20, Alkaline Phosphatase 49, Total Protein 8.0, Albumin 4.9, Globulin 3.1, Albumin/Globulin Ratio 1.6 11/01/24 01:36 11/01/24 01:36 Orders (Tests/Meds): ED MEDICATIONS Discontinued Medications Generic Name Dose Route Start Last Admin Trade Name Jacquelyn PRN Reason Stop Dose Admin Hydroxyzine Pamoate 50 mg 11/01/24 02:31 Hydroxyzine Pamoate 25mg Capsule PO 11/01/24 02:32 ONCE ONE Iopamidol 80 ml 11/01/24 02:29 11/01/24 02:30 Iopamidol-370 (76%);100ml Bottle IV 11/01/24 02:30 80 ml ONCE ONE Administration Lidocaine 1 each 11/01/24 01:06 11/01/24 01:13 Lidocaine 5% Transdermal Patch TP 11/01/24 01:07 1 each ONCE ONE Administration Promethazine HCl 12.5 mg 11/01/24 01:23 11/01/24 01:25 Promethazine Hcl 12.5mg Tablet PO 11/01/24 01:24 12.5 mg ONCE ONE Administration Sodium Chloride 10 ml 11/01/24 02:29 11/01/24 02:30 Sodium Chloride 0.9% 10ml Syr (Rad Only) IV 11/01/24 02:30 10 ml ONCE ONE Administration Sodium Chloride 50 ml 11/01/24 02:29 11/01/24 02:30 0.9 % Sodium Chloride 50 Ml Vial IV 11/01/24 02:30 50 ml ONCE ONE Administration ORDERS Category Date Time Status CT angio head Stat Cat Scan 11/01/24 01:[address] angio neck Stat Cat Scan 11/01/24 01:[address] cervical spine wo con Stat Cat Scan 11/01/24 01:[address] head/brain wo con Stat Cat Scan 11/01/24 01:[address] thoracic spine wo con Stat Cat Scan 11/01/24 01:06 Completed CBC w/Auto Diff [Complete Blood Count Auto Diff] Stat Lab 11/01/24 01:36 Completed CMP [Comprehensive Metabolic Panel] Stat Lab 11/01/24 01:36 Completed Urine , HCG Qual. Stat Lab 11/01/24 01:18 Completed Medical Decision Narrative: In summary, this 29-year-old female with comorbidities described in the HPI presents to the emergency department today with neck pain, back pain after hearing a pop at the eye doctor. On initial evaluation patient is tearful but hemodynamically stable, afebrile, GCS 15 without localizing neurologic deficits, diffuse tenderness throughout her back, no deformity or step-off. Differential diagnosis includes but is not limited to muscle spasm, occipital neuralgia exacerbation, I considered the possibility of fracture or dislocation though I have extremely low suspicion for this given minimal energy mechanism of injury, also considered dissection, stroke since patient reports subjective weakness in the upper extremities but does not have identifiable deficits on exam, I have very low suspicion for these as well. NIH 0. Based on these concerns, I ordered basic labs, test, CT imaging of the upper spine, head, neck including angiography. Patient placed in c-collar for comfort. After reviewing outside facility notes, patient and family reporting that she is taking leftover narcotic medications for her pain, but does increase my concern for possible visit for secondary gain. She has had multiple evaluations at multiple different hospitals and does not seem to be consistently following up with her higher level of care teams or going back to the hospital where her higher level of care has been provided. It concerns me that she now presents to the ER tonight after having been treated at [facility], evaluated at off though where the incident reportedly occurred, but now came to the ER at [place] multiple hours later. Concerning that she did not present directly to ER after her pain had initially started since she was being seen in the off the clinic. And being very conservative with pain management of this patient since she has already taken narcotics prior to arrival. I provided lidocaine patch initially. Significant other requested something for anxiety so I ordered hydroxyzine but patient is currently refusing this. Patient became so anxious and CT that she merely had emesis again. I walked her through regulating her breathing and slowed down her hyperventilation, she never did have emesis. She did end up receiving additional Phenergan. Labs personally reviewed demonstrate normal CBC, unremarkable, nonactionable CMP stable from prior, negative test. I personally interpreted all CTs and do not appreciate acute injury, malalignment, fracture, intracranial bleed, mass, midline shift, dissection, or evidence of stroke. Patient has no neurologic deficits on exam. She is still complaining of pain. She asked about steroids which I will not be providing due to lack of evidence as well as no obvious injury. Additionally, in reviewing notes from trigger point injections have been recommended. I encouraged her and spouse to follow-up with for this purpose. I also discussed with her keeping a close connection with her specialists and trying to get closer follow- up for her symptoms. Patient is tolerating oral intake, she has calm down and is less tearful at this time. Patient was given instructions on symptomatic management, follow up instructions, and return precautions for the emergency department. Patient indicated understanding and was discharged in stable condition. Critical Care Critical Care Time Critical Care Time: No
[2024-11-01] MEDS: LIDOCAINE 5% TRANSDERMAL PATCH 1 EACH TP (01:13)
[2024-11-01] MEDS: PROMETHAZINE HCL 12.5MG TABLET 12.5 MG PO (01:25)
--- NOTE | 2024-11-01 01:26 | CT_ITS ---
PROCEDURE INFORMATION: Exam: CTA Neck With Contrast Exam date and time: 11/01/2024 2:20 AM Age: 29 years old Clinical indication: Other: Neck pain PT reports weak bue; Additional info: Neck pain reported weak bue TECHNIQUE: Imaging protocol: Computed tomographic angiography of the neck with contrast. Exam focused on the cervical segments of the vasculature. 3D rendering (Not supervised by radiologist): MIP and/or 3D reconstructed images were created by the technologist. Radiation optimization: All CT scans at this facility use at least one of these dose optimization techniques: automated exposure control; mA and/or kV adjustment per patient size (includes targeted exams where dose is matched to clinical indication); or iterative reconstruction. Contrast material: ISOVUE; Contrast volume: 80 ml; Contrast route: INTRAVENOUS (IV); COMPARISON: CT ANGIO NECK 10/28/2024 6:40 PM FINDINGS: Right common carotid artery: No stenosis. No dissection or occlusion. Right internal carotid artery: No stenosis of the extracranial segment. No dissection or occlusion. Right external carotid artery: No occlusion or stenosis of the origin. Left common carotid artery: No stenosis. No dissection or occlusion. Left internal carotid artery: No stenosis of the extracranial segment. No dissection or occlusion. Left external carotid artery: No occlusion or stenosis of the origin. Right vertebral artery: No stenosis. No dissection or occlusion. Left vertebral artery: No stenosis. No dissection or occlusion. Soft tissues: Normal. No significant soft tissue swelling. Bones/joints: No acute osseous abnormality. Partially seen are postoperative changes from prior thoracic spine surgery. Lungs: Minimal biapical scarring. Visualized lung apices otherwise clear. IMPRESSION: 1. No significant interval change in comparison to 10/28/2024. 2. No stenosis, dissection, or occlusion. REFERENCES: NASCET CRITERIA. The degree of stenosis in the cervical segment of the internal carotid artery is based on NASCET criteria. Normal is no stenosis. Mild is less than 50% stenosis. Moderate is 50-69% stenosis. Severe is 70% to 99% stenosis. Total occlusion is no detectable patent lumen.
--- NOTE | 2024-11-01 01:26 | CT_ITS ---
PROCEDURE INFORMATION: Exam: CTA Head With Contrast, Arteriography Exam date and time: 11/01/2024 2:20 AM Age: 29 years old Clinical indication: Other: Neck pain PT reports weak bue; Additional info: Neck pain reported weak bue TECHNIQUE: Imaging protocol: Computed tomographic angiography of the head with contrast. Exam focused on the arteries. 3D rendering (Not supervised by radiologist): MIP and/or 3D reconstructed images were created by the technologist. Radiation optimization: All CT scans at this facility use at least one of these dose optimization techniques: automated exposure control; mA and/or kV adjustment per patient size (includes targeted exams where dose is matched to clinical indication); or iterative reconstruction. Contrast material: ISOVUE; Contrast volume: 80 ml; Contrast route: INTRAVENOUS (IV); COMPARISON: CT ANGIO HEAD 10/28/2024 6:40 PM FINDINGS: ANTERIOR CIRCULATION: Right internal carotid artery: Intracranial segment is patent with no significant stenosis. No aneurysm. Right middle cerebral artery: No occlusion or significant stenosis. No aneurysm. Right anterior cerebral artery: No occlusion or significant stenosis. No aneurysm. Left internal carotid artery: Intracranial segment is patent with no significant stenosis. No aneurysm. Left middle cerebral artery: No occlusion or significant stenosis. No aneurysm. Left anterior cerebral artery: No occlusion or significant stenosis. No aneurysm. POSTERIOR CIRCULATION: Right vertebral artery: No occlusion or significant stenosis. No aneurysm. Left vertebral artery: No occlusion or significant stenosis. No aneurysm. Basilar artery: No occlusion or significant stenosis. No aneurysm. Right posterior cerebral artery: No occlusion or significant stenosis. No aneurysm. Left posterior cerebral artery: No occlusion or significant stenosis. No aneurysm. Brain: No definite mass, mass effect, or midline shift. Cerebral ventricles: No ventriculomegaly. Bones/joints: Unremarkable. No acute fracture. Soft tissues: Unremarkable. IMPRESSION: 1. No change from 10/28/2024. 2. No large vessel stenosis or occlusion.
--- NOTE | 2024-11-01 01:26 | CT_ITS ---
PROCEDURE INFORMATION: Exam: CT Head Without Contrast Exam date and time: 11/01/2024 2:12 AM Age: 29 years old Clinical indication: Other: Neck pain PT reports weak bue TECHNIQUE: Imaging protocol: Computed tomography of the head without contrast. Total images: 538 Radiation optimization: All CT scans at this facility use at least one of these dose optimization techniques: automated exposure control; mA and/or kV adjustment per patient size (includes targeted exams where dose is matched to clinical indication); or iterative reconstruction. COMPARISON: CT ANGIO HEAD 10/28/2024 6:40 PM FINDINGS: Brain: Normal. No hemorrhage. Unremarkable white matter. No mass effect. The amezcua-white interface is maintained. Cerebral ventricles: No ventriculomegaly. Paranasal sinuses: Small retention cyst or polyp posterior right sphenoid sinus. Tiny retention cyst or polyp anterior wall right maxillary sinus. Mastoid air cells: Visualized mastoid air cells are well aerated. Bones: Unremarkable. No acute fracture. Soft tissues: Unremarkable. IMPRESSION: 1. No acute intracranial process. 2. No change from October 28, 2024.
[2024-11-01 01:38] VITALS: BP 125/86; PULSE 113; O2SAT 96
[2024-11-01 01:46] LABS: Basophils # 0.1 K/mm3 (0-0.2); Basophils % 0.6 % (0.1-2.0); Eosinophils % 0.2 % (0.1-12.0); Hematocrit 42.1 % (37.0-47.0); Hemoglobin 14.5 g/dL (12.2-16.2); Lymphocytes # 1.5 K/mm3 (0.7-4.5); Lymphocytes % 17.3 % (10-50); Mean Corpuscular HGB Conc 34.4 g/dL (31.8-35.4); Mean Corpuscular Volume 87.2 fl (81-99); Mean Platelet Volume 9.6 fl (7.4-10.4); Monocytes # 0.2 K/mm3 (0.1-1.0); Monocytes % 2.7 % (1.7-9.3); Platelet Count 381 K/mm3 (142-424); Red Blood Count 4.83 M/mm3 (4.20-5.40); Red Cell Distribution Width 11.6 % (11.5-17.5); White Blood Count 8.9 K/mm3 (4.8-10.8)
[2024-11-01 01:52] LABS: Urine Pregnancy, HCG Qual. Negative (Negative)
[2024-11-01 01:58] LABS: Albumin Level 4.9 g/dl (3.5-5.0); Chloride 105 mmol/L (98-107); Potassium 3.8 mmoL/L (3.5-5.1); Sodium 138 mmol/L (136-145)
[2024-11-01 02:00] VITALS: BP 113/76; PULSE 82; O2SAT 98
[2024-11-01 02:00] LABS: Blood Urea Nitrogen 6 mg/dl (7-17); Creatinine Clearance Estimated 122 mL/min (50-200); Estimated Glomerular Filt Rate 117 ml/min (>60); GFR (African American) 141 ML/MIN (>60)
[2024-11-01 02:01] LABS: Alanine Aminotransferase 20 U/L (12-78); Alkaline Phosphatase 49 U/L (38-126); Anion Gap 12.8 mEq/L (5-15); Aspartate Amino Transferase 33 U/L (14-36); Bilirubin,Total 0.6 mg/dl (0.2-1.3); Calcium 9.7 mg/dl (8.4-10.2); Carbon Dioxide 24 mmol/L (22.0-30.0); Glucose 125 mg/dl (74-100)
--- NOTE | 2024-11-01 02:04 | PC.NURSE ---
Patient attempted to wear c-collar for comfort for her neck pain, after applying collar patient declined to wear.
--- NOTE | 2024-11-01 02:06 | PC.NURSE ---
Patient taken to CT at this time by wheelchair.
--- NOTE | 2024-11-01 02:26 | PC.NURSE ---
Patient back from CT at this time
[2024-11-01] MEDS: 0.9 % SODIUM CHLORIDE 50 ML VIAL IV (02:30)
[2024-11-01] MEDS: SODIUM CHLORIDE 0.9% 10ML SYR (RAD ONLY) 10 ML IV (02:30)
[2024-11-01] MEDS: IOPAMIDOL-370 (76%);100ML BOTTLE 80 ML IV (02:30)
[2024-11-01 02:31] LABS: Albumin/Globulin Ratio 1.6 (1.1-1.8); Globulin 3.1 g/dL (1.3-3.2)
[2024-11-01 03:32] VITALS: BP 131/87; PULSE 89; RESP 18; TEMP 37.1; O2SAT 98
== END 2024-11-01 03:38 | disposition home or self-care (01) ==
PROVIDERS: Emergency Provider Emergency Medicine; PCP Nurse Practitioner Family
DX: M54.6 Pain in thoracic spine (principal); M54.2 Cervicalgia; M62.838 Other muscle spasm; M54.9 Dorsalgia, unspecified; R53.1 Weakness; R11.2 Nausea with vomiting, unspecified
CPT/HCPCS: 70450; 70496; 70498; 72125; 72128; 80053; 81025; 85025; 99285; Q9967

== ENCOUNTER 2024-11-30 16:22 | Outpatient (CLI) | payer OTHER, SELFPAY ==
[2024-11-30 16:56] LABS: Microscopic, Urine URINE MICROSCOPIC (MICROSCOPIC)
[2024-11-30 18:49] LABS: Blood, Urine 3+ (Negative); Glucose,Urine (UA) 1+ (Negative); Ketones,Urine Negative (Negative); Leukocyte Esterase,Urine 2+ (Negative); Nitrate,Urine POSITIVE (Negative); PH,Urine 6.5 (5.0-8.5); Protein,Urine 3+ (Negative); Urobilinogen,Urine >=8.0 EU/dl (0.2)
[2024-11-30 19:03] LABS: Appearance,Urine Cloudy (Clear); Bilirubin,Urine Negative (Negative); Color,Urine Orange (Yellow)
[2024-11-30 19:16] LABS: Bacteria,Urine 4+ /lpf; RBC,Urine TNTC #/hpf (0-3); WBC,Urine TNTC #/hpf (0-3)
== END 2024-11-30 23:59 | disposition home or self-care (01) ==
LOC: LAB.DROPOF 12-01 15:11
PROVIDERS: PCP Nurse Practitioner Family; Visit Provider Nurse Practitioner Family
DX: R30.0 Dysuria (principal); R31.9 Hematuria, unspecified; R39.15 Urgency of urination
CPT/HCPCS: 81001; 87086; 87088; 87186

== ENCOUNTER 2025-05-02 15:44 | Outpatient (CLI) | payer OTHER, SELFPAY ==
--- OUTSIDE RECORDS SUMMARY | 2025-05-02 15:51 | XMS_ITS | Clinical Summary ---
Author Organization [facility] Address [address] [place] [address] Care Team Providers Care Clamshell Operator Name Role Phone Sana Robles APRN Primary Care Provider [phone] Allergies Active Allergy Reactions Criticality Noted Date Comments Azithromycin Anaphylaxis High 10/30/2024 Gabapentin Anaphylaxis High 10/30/2024 Social History Tobacco Use Types Packs/Day Years Used Date Smoking Tobacco: Never Assessed Abuse Screen Answer Date Recorded Feels Unsafe at Home or Work/School no 10/30/2024 Feels Threatened by Someone no 10/06 Does Anyone Try to Keep You From Having Contact with Others or Doing Things Outside Your Home? no 10/30/2024 Physical Signs of Abuse Present no 10/30/2024 Comments No Sex and Gender Information Value Date Recorded Sex Assigned at Not on file Legal Sex Female 11:45 AM EDT Gender Identity Not on file Sexual Orientation Not on file Last Filed Vital Signs Vital Sign Reading Time Taken Comments Blood Pressure 120/68 10/31/2024 12:32 AM EST Pulse 76 10/31/2024 12:32 AM EST Temperature 36.8 C (98.2 F) 10/30/2024 8:16 PM EST Respiratory Rate 20 10/30/2024 8:16 PM EST Oxygen Saturation 98% 10/31/2024 12:32 AM EST Inhaled Oxygen Concentration - - Weight 68 kg (150 lb) 10/30/2024 8:16 PM EST Height 170.2 cm (5' 7 ) 10/30/2024 8:16 PM EST Body Mass Index 23.49 10/30/2024 8:16 PM EST Plan of Treatment Health Maintenance Due Date Last Done Comments ANNUAL PHYSICAL 1993 Annual Gynecologic Pelvic an d Breast Exam 1993 TDAP/TD VACCINES (1 - Tdap) 2012 COVID-19 Vaccine ( - 2023-2 5 season) 2024 INFLUENZA VACCINE 07/05/2025 07/23/2018, 06/19/2011, 08/08/2010 Pneumococcal Vaccine 0-49 Aged Out 08/08/2010 No longer eligible based on patient's age to complete this topic HEPATITIS C SCREENING Completed 10/25/2024 Insurance [facility] Care Teams Clamshell Operator Relationship Specialty Start Date End Date Sana Robles APRN [address] [place] [id number] PCP - General Internal Medicine 10/30/24
--- OUTSIDE RECORDS SUMMARY | 2025-05-02 15:51 | XMS_ITS | Clinical Summary ---
Author Organization [facility] Address [address] [place] [address] Phone Care Team Providers Care Can Repairer Name Role Phone Moni Moon MD [ ] Conditions or Problems Problem Name Problem Code Onset Date Status Entry Date Provider Comment Standard Description Annotate TOBACCO ABUSE 14311606 (SNOMED CT) Active Brii Ybarra Tobacco dependence syndrome 82824503 (SNOMED CT) Active Brii Ybarra PNEUMONIA 998512453 (SNOMED CT) Active Brii Ybarra Pneumonia Medications Medication Instructions Start Date Stop Date Generic Name [facility] Provider ZOFRAN 4 MG ORAL TABLET 9 ONDANSETRON HCL 81985660620 Nany Munguia FLORASTOR KIDS PACK 9 SACCHAROMYCES BOULARDII PACK [id number] Nany Munguia TYLENOL 500 MG/15ML ORAL LIQUID 9 ACETAMINOPHEN [id number] Nany Munguia CEFDINIR CAPS 9 CEFDINIR CAPS [id number] Nany Munguia AZITHROMYCIN 500 MG TABS 9 AZITHROMYCIN [id number] Nany Scottty VITAMINS TABLET 9 MV & MIN W/FE-FA TABS [id number] Nany Munguia Medications Administered No information available. Allergies, Adverse Reactions, Alerts Observed no known allergies at Results Date Name Value Unit Range Flag Description Clinical Lists Update: Prelo ad CIGARET SMKG yes Tobacco smoking status SMOK STATUS current every da y smoker Tobacco smoking status Plan of Care No information available. Procedures No information available. Vital Signs No information available. Immunizations No information available. Advance Directives No information available.
--- OUTSIDE RECORDS SUMMARY | 2025-05-02 15:51 | XMS_ITS | Clinical Summary ---
Author Organization [facility] Address [address] [place] [address] Care Team Providers Care Rolloff Truck Driver Name Role Phone DonellThea Jf JAY Primary Care Provider [phone] Allergies Active Allergy Reactions Criticality Noted Date Comments Gabapentin Anaphylaxis High 10/30/2024 Azithromycin Angioedema High 06/03/2024 Medications methocarbamol (Robaxin) 500 MG tablet Take 1 tablet (500 mg) by mouth 4 (four) times a day if needed for muscle spasms for up to 5 days. 15 tablet 5 Active gabapentin (Neurontin) 100 MG capsule Take 1 capsule (100 mg) by mouth 3 (three) times a day for 7 days, THEN 3 capsules (300 mg) 3 (three) times a day for 23 days. Only increase the dose if you are tolerating the medication and if you are not experiencing pain control.. 228 capsule 5 Active Additional Information Patient not taking.Reported on 10/31/2024 gabapentin (Neurontin) 300 MG capsule Take 1 capsule (300 mg) by mouth 3 (three) times a day. 30 capsule 3 5 Active Additional Information Patient not taking.Reported on 10/31/2024 albuterol (Proventil) (2.5 MG/3ML) 0.083% nebulizer solution INHALE 2.5 MG EVERY 4 TO 6 HOURS NEEDED FOR BRONCHOSPASM 4 Active benzonatate (Tessalon) 100 MG capsule take 1 capsule by mouth every 8 hours as needed 4 Active cetirizine (ZyrTEC ALLERGY) 10 MG tablet 10/22/201 8 Active famotidine (Pepcid) 20 MG tablet take 1 tablet by mouth every 12 hours for 5 days 4 Active fluconazole (Diflucan) 100 MG tablet TAKE 1 TABLET BY MOUTH ONCE DAILY FOR 4 DAYS Active Mucus Relief ER 600 MG 12 hr tablet TAKE 2 TABLETS BY MOUTH TWICE DAILY NEEDED FOR COUGH 4 Active naproxen (Naprosyn) 500 MG tablet Take 1 tablet (500 mg) by mouth every 12 (twelve) hours if needed. Active Jeanette 0.25-35 MG-MCG tablet TAKE 1 TABLET BY MOUTH DAILY FOR CONTROL Active Active Problems Problem Noted Date Diagnosed Date Other localized visual field defect, bilateral 0 10/31/2024 Myofascial pain on left side 10/31/2024 Occipital neuralgia of left side 10/31/2024 Astigmatism of both eyes 10/31/2024 Myopia of both eyes 10/31/2024 Moderate visual loss of both eyes 10/31/2024 Social History Tobacco Use Types Packs/Day Years Used Date Smoking Tobacco: Every Day Alcohol Use Standard Drinks/Week Comments No 0 (1 standard drink = 0.6 oz pur e alcohol) Comments Unknown Sex and Gender Information Value Date Recorded Sex Assigned at Not on file Legal Sex Female 7:58 PM EDT Gender Identity Not on file Sexual Orientation Not on file Last Filed Vital Signs Vital Sign Reading Time Taken Comments Blood Pressure 122/81 10/25/2024 11:54 PM EST Pulse 72 10/25/2024 11:54 PM EST Temperature 36.7 C (98.1 F) 10/25/2024 11:54 PM EST Respiratory Rate 16 10/25/2024 11:54 PM EST Oxygen Saturation 97% 10/25/2024 11:54 PM EST Inhaled Oxygen Concentration - - Weight 69.9 kg (154 lb) 10/25/2024 6:16 PM EST Height 170.2 cm (5' 7 ) 10/25/2024 6:16 PM EST Body Mass Index 24.12 10/25/2024 6:16 PM EST Plan of Treatment Health Maintenance Due Date Last Done Comments [facility]-Depression Screening 1993 [facility]-Infant/Child/Adol SDOH Screenings 1993 [facility]-IPV Vaccines (2 of 3 - 4-dose series) 06/15/1997 05/18/1997 [facility]-Varicella Vaccines (1 of 2 - 13+ 2-dose series) 2006 HPV Vaccines (1 - 3-dose series) 2008 [facility]- SDOH Screenings 2011 [facility]-Adult SDOH Screenings 2011 [facility]-Pneumococcal Vaccine: Pediatrics (0 to 5 Years) and At-Risk Patients (6 to 49 Years) (2 of 2 - PCV) 08/08/2011 08/08/2010 [facility]-DTaP,Tdap,and Td Vaccines (2 - Tdap) 2012 05/18/1997 [facility]-Hepatitis B Vaccines (1 of 3 - 19+ 3-dose series) 2012 [facility]-Pap Smear 2014 [facility]-Cervical Cancer Screening 2023 [facility]-HPV/Cotest 2023 [id number] Vaccine (1 - 2023- season) 2024 [facility]-Influenza Vaccine (#1) 06/05/202507/23, 06/19/2011, 08/08/2010 [facility]-Zoster Vaccines (1 of 2) 2043 [facility]-HIV Screening Completed 10/25/2024, 03/24/2018 [facility]-Hepatitis C Screening Completed 2024, 03/24/2018 [facility]-HIB Vaccines Aged Out No longer e ligible based on patient's age to complete this topic [facility]-Hepatitis A Vaccines Aged Out No longer eligible based on patient's age to complete this topic [facility]-Rotavirus Vaccines Aged Out No lo nger eligible based on patient's age to complete this topic Procedures Procedure Name Priority Date/Time Associated Diagnosis Comments HEPATITIS C ANTIBODY - ED W/REFLEX TO HCV QUANT PCR STAT 10/25/2024 7:42 PM EST ED HIV 1/2 ANTIBODY/ANTIGEN SCREEN WITH REFLEX TO HIV I/II DIFFERENTIATION STAT 10/25/2024 7:42 PM EST from Last 3 Months or Most Recently Relevant to Health Maintenance Results * ED HIV 1/2 Antibody/Antigen Screen w/Reflex to HIV 1/2 Differentiation (10/25/2024 7:42 PM EST) HIV 1 & 2 Antibody/Antigen Screen Non Reactive Non Reactive 10/25/2024 8:43 PM EST [facility] Comment:Screening for HIV 1 & 2 antibodies, and P24 antigen is NONREACTIVE. No confirmatory testing is required. Blood Venous blood specimen / Unknown Venipuncture / Unknown 10/25/2024 7:42 PM EST 10/25/2024 8:03 PM EST us Farzaneh Singleton MD LAB BLOOD ORDERABLES Final R esult [facility] [address] [place] [address] * Hepatitis C Antibody - ED (10/25/2024 7:42 PM EST) [facility] Hepatitis C Antibody Negative Negative 10/25/2024 8:43 PM EST [facility] Blood Venous blood specimen / Unknown Venipuncture / Unknown 10/25/2024 7:42 PM EST 10/25/2024 8:03 PM EST us Farzaneh Singleton MD LAB BLOOD ORDERABLES Final R esult [facility] [address] [place] [address] from Last 3 Months or Most Recently Relevant to Health Maintenance Insurance [employer]ET[employer] [facility] MEDICAID Care Teams Rolloff Truck Driver Relationship Specialty Start Date End Date Thea Marley APRN [address] [place] [address] PCP - General 02/15/21
[2025-05-02 16:13] LABS: Hematocrit 37.4 % (37.0-47.0); Hemoglobin 13.3 g/dL (12.2-16.2); Immature Granulocytes % 0.2 %; Mean Corpuscular HGB Conc 35.6 g/dL (31.8-35.4); Mean Corpuscular Hemoglobin 31.3 pg (27.0-31.2); Mean Corpuscular Volume 88.0 fl (81-99); Nucleated Red Blood Cells % 0 %; Platelet Count 348 K/mm3 (142-424); Red Blood Count 4.25 M/mm3 (4.20-5.40); Red Cell Distribution Width-SD 37.7 fL; White Blood Count 6.5 K/mm3 (4.8-10.8)
[2025-05-02 16:38] LABS: Alanine Aminotransferase 11 U/L (12-78); Albumin Level 4.5 g/dl (3.5-5.0); Albumin/Globulin Ratio 1.8 (1.1-1.8); Alkaline Phosphatase 57 U/L (38-126); Anion Gap 9.8 mEq/L (5-15); Aspartate Amino Transferase 20 U/L (14-36); Bilirubin,Total 0.5 mg/dl (0.2-1.3); Blood Urea Nitrogen 6 mg/dl (7-17); Calcium 9.5 mg/dl (8.4-10.2); Carbon Dioxide 26 mmol/L (22.0-30.0); Chloride 106 mmol/L (98-107); Creatinine,Serum 0.60 mg/dl (0.52-1.04); Estimated Glomerular Filt Rate 116 ml/min (>60); GFR (African American) 140 ML/MIN (>60); Globulin 2.5 g/dL (1.3-3.2); Glucose 97 mg/dl (74-100); Potassium 3.8 mmoL/L (3.5-5.1); Sodium 138 mmol/L (136-145); Total Protein,Serum 7.0 g/dl (6.3-8.2)
[2025-05-02 16:54] LABS: 25-OH Vitamin D, Total 15.6 ng/mL (30-100)
[2025-05-02 17:26] LABS: Vitamin B12 535 pg/mL (239-931)
[2025-05-02 17:55] LABS: Ferritin 29.9 ng/ml (6.24-137)
[2025-05-03 12:27] LABS: Antinuclear Antibodies (ANA) Negative (Negative)
[2025-05-03 14:18] LABS: EBV Nuclear Antigen Ab, IgG 201.0 U/mL (0.0-17.9)
[2025-05-06 02:09] LABS: Magnesium,RBC 5.2 mg/dL (3.7-7.0)
== END 2025-05-02 23:59 | disposition home or self-care (01) ==
LOC: LAB 15:45
PROVIDERS: PCP Nurse Practitioner Family; Visit Provider Nurse Practitioner Family
DX: M79.7 Fibromyalgia (principal); M62.838 Other muscle spasm; R42 Dizziness and giddiness; R29.90 Unspecified symptoms and signs involving the nervous system; R26.81 Unsteadiness on feet; Z82.69 Family history of other diseases of the musculoskeletal system and connective tissue; R68.89 Other general symptoms and signs
CPT/HCPCS: 36415; 80053; 82180; 82306; 82525; 82607; 82728; 83735; 84207; 84425; 84630; 85025; 86664; 86665; 86812

== ENCOUNTER 2025-05-24 15:23 | Outpatient (CLI) | payer OTHER, SELFPAY ==
[2025-05-24 18:03] LABS: Free T4 (Free Thyroxine) 1.16 ng/dl (0.78-2.19)
[2025-05-24 23:51] LABS: Thyroid Stimulating Hormone 1.54 uIU/mL (0.465-4.68)
--- OUTSIDE RECORDS SUMMARY | 2025-05-25 12:01 | XMS_ITS | Clinical Summary ---
Author Organization [facility] Address [address] [place] [address] Phone Care Team Providers Care Executive Pastry Chef Name Role Phone Moni Moon MD [ ] Conditions or Problems Problem Name Problem Code Onset Date Status Entry Date Provider Comment Standard Description Annotate TOBACCO ABUSE 76293295 (SNOMED CT) Active Brii Ybarra Tobacco dependence syndrome 45488405 (SNOMED CT) Active Brii Ybarra PNEUMONIA 336964954 (SNOMED CT) Active Brii Ybarra Pneumonia Medications Medication Instructions Start Date Stop Date Generic Name [facility] Provider ZOFRAN 4 MG ORAL TABLET 9 ONDANSETRON HCL [id number] Nany Munguia FLORASTOR KIDS PACK 9 SACCHAROMYCES BOULARDII PACK [id number] Nany Munguia TYLENOL 500 MG/15ML ORAL LIQUID 9 ACETAMINOPHEN [id number] Nany Munguia CEFDINIR CAPS 9 CEFDINIR CAPS [phone] Nany Munguia AZITHROMYCIN 500 MG TABS 9 AZITHROMYCIN [id number] Nany Scottty VITAMINS TABLET 9 MV & MIN W/FE-FA TABS [id number] Nany Munguia Medications Administered No information available. [...]
--- OUTSIDE RECORDS SUMMARY | 2025-05-25 12:02 | XMS_ITS | Clinical Summary ---
Author Organization [facility] Address [address] [place] [address] Care Team Providers Care Dinkey Engine Mechanic Name Role Phone Sana Robles APRN Primary Care Provider [phone] Allergies Active Allergy Reactions Criticality Noted Date [...] topic HEPATITIS C SCREENING Completed 10/25/2024 [facility] Care Teams Dinkey Engine Mechanic Relationship Specialty Start Date End Date Sana Robles APRN [address] [place] [id number] PCP - General Internal Medicine 10/30/24
--- OUTSIDE RECORDS SUMMARY | 2025-05-25 12:02 | XMS_ITS | Clinical Summary ---
Author Organization [facility] Address [address] [place] [address] Care Team Providers Care Water Registrar Name Role Phone DonellThea Jf JAY Primary Care Provider [phone] Allergies Active Allergy Reactions Criticality Noted Date [...] Date Last Done Comments [facility]-Depression Screening 1993 [facility]-/Child/Adol SDOH Screenings 1993 [facility]-IPV Vaccines (2 of 3 - 4-dose series) 06/15/1997 05/18/1997 [facility]-Varicella Vaccines (1 of 2 - 13+ 2-dose series) 2006 [facility]- SDOH Screenings 2011 [facility]-Adult SDOH Screenings 2011 [facility]-Pneumococcal Vaccine: Pediatrics (0 to 5 Years) and At-Risk Patients (6 to 49 Years) (2 of 2 - PCV) 08/08/2011 08/08/2010 [facility]-DTaP,Tdap,and Td Vaccines (2 - Tdap) 2012 05/18/1997 [facility]-Hepatitis B Vaccines (1 of 3 - 19+ 3-dose series) 2012 [facility]-Pap Smear 2014 HPV Vaccines (1 - 3-dose SCDM series) 2020 [facility]-Cervical Cancer Screening 2023 [facility]-HPV/Cotest 2023 [id number] Vaccine (1 - season) 2024 [facility]-Influenza Vaccine (#1) 06/05/202507/23, 06/19/2011, [...] HIV 1/2 Differentiation (10/25/2024 7:42 PM EST) [facility] HIV 1 & 2 Antibody/Antigen Screen Non Reactive Non Reactive 10/25/2024 8:43 PM EST [facility] Comment:Screening for HIV 1 & 2 antibodies, and P24 antigen is NONREACTIVE. No confirmatory testing is required. Blood Venous blood specimen / Unknown Venipuncture / Unknown 10/25/2024 7:42 PM EST 10/25/2024 8:03 PM EST us Farzaneh Singleton MD LAB BLOOD ORDERABLES Final R esult [facility] [address] [place] [address] * Hepatitis C Antibody - ED (10/25/2024 7:42 PM EST) [facility] Hepatitis C Antibody Negative Negative 10/25/2024 8:43 PM EST [facility] Blood Venous blood specimen / Unknown Venipuncture / Unknown 10/25/2024 7:42 PM EST 10/25/2024 8:03 PM EST us Farzaneh Singleton MD LAB BLOOD ORDERABLES Final R esult [facility] [address] [place] [address] from Last 3 Months or Most Recently Relevant to Health Maintenance Insurance AETNA [facility] MEDICAID Care Teams Water Registrar Relationship Specialty Start Date End Date Thea Marley APRN [address] [place] [address] PCP - General 02/15/21
[2025-05-26 12:19] LABS: Triiodothyronine (T3) Free 4.1 pg/mL (2.0-4.4)
== END 2025-05-24 23:59 | disposition home or self-care (01) ==
LOC: LAB.DROPOF 05-25 11:59
PROVIDERS: PCP Nurse Practitioner Family; Visit Provider Nurse Practitioner Family
DX: R79.89 Other specified abnormal findings of blood chemistry (principal)
CPT/HCPCS: 84439; 84443; 84481; 86376; 86800

== ENCOUNTER 2025-08-24 15:02 | Outpatient (CLI) | payer OTHER, SELFPAY ==
--- NOTE | 2025-08-24 15:00 | US_ITS ---
PROCEDURE: US TRANSVAGINAL CLINICAL INDICATION: abdominal pain COMPARISON: No exams were available for comparison FINDINGS: Transvaginal sonographic images of the pelvis were obtained. UTERUS: 5.8 cm x 3.9 cmx 3.1cm retroverted and retroflexed with a combined endometrial thickness of 3.8mm. LEFT OVARY: 2.7 cmx2.2cmx1.3cm with a volume of 4ml. There are several small peripheral follicles. RIGHT OVARY: 5.8 cmx 4.0 cmx4.2cm with a volume of 50.8ml. There is a simple cyst measuring 5.1 cm x 3.6 cm x 3.3 cm. Within the cyst there appears to be a band of blood clot within the cyst. Both ovaries are seen and appear normal. Doppler flow to both ovaries are seen. There is no fluid in the cul-de-sac. IMPRESSION: 1. Retroverted and retroflexed uterus normal in shape and size. 2. The right ovary is enlarged and contains a simple cyst measuring 5 cm in size. There is a band of blood clot within the simple cyst. 3. Left ovary is seen and appears normal and has several small peripheral follicles. 4. No fluid in the cul-de-sac. Dictated by: En Engle MD 08/24/2025 16:39 En Engle MD in OV 08/24/2025 16:39
--- OUTSIDE RECORDS SUMMARY | 2025-08-24 17:09 | XMS_ITS | Clinical Summary ---
Author Organization [facility] Address [address] [place] [address] Phone Care Team Providers Care Hand Sprayer Name Role Phone Moni Moon MD [phone] [ ] Conditions or Problems Problem Name Problem Code Onset Date Status Entry Date Provider Comment Standard Description Annotate TOBACCO ABUSE 00642299 (SNOMED CT) Active Brii Ybarra Tobacco dependence syndrome 11754221 (SNOMED CT) Active Brii Ybarra PNEUMONIA 045314476 (SNOMED CT) Active Brii Ybarra Pneumonia Medications Medication Instructions Start Date Stop Date Generic Name [facility] Provider ZOFRAN 4 MG ORAL TABLET 9 ONDANSETRON HCL [id number] Nany Munguia FLORASTOR KIDS PACK 9 SACCHAROMYCES BOULARDII PACK [phone] Nany Munguia TYLENOL 500 MG/15ML ORAL LIQUID 9 ACETAMINOPHEN [id number] Nany Munguia CEFDINIR CAPS 9 CEFDINIR CAPS [phone] Nany Munguia AZITHROMYCIN 500 MG TABS 9 AZITHROMYCIN [id number] Nany Scottty VITAMINS TABLET 9 MV & MIN W/FE-FA TABS [id number] Nany Munguia Medications Administered No information available. [...]
== END 2025-08-24 23:59 | disposition home or self-care (01) ==
LOC: RAD 15:02
PROVIDERS: PCP Nurse Practitioner Family; Visit Provider Obstetrics & Gynecology
DX: N85.4 Malposition of uterus (principal); N83.8 Other noninflammatory disorders of ovary, fallopian tube and broad ligament; N83.291 Other ovarian cyst, right side; N83.02 Follicular cyst of left ovary; R10.9 Unspecified abdominal pain; R63.0 Anorexia
CPT/HCPCS: 76830

== ENCOUNTER 2025-08-28 10:49 | Day surgery (SDC) | payer OTHER, SELFPAY ==
[2025-08-28 11:11] VITALS: BP 142/96; PULSE 98; RESP 16; TEMP 36.6; O2SAT 99; BMI 23.2
--- OUTSIDE RECORDS SUMMARY | 2025-08-28 11:13 | XMS_ITS | Clinical Summary ---
Author Organization [facility] Address [address] [place] [address] Care Team Providers Care Branch Controller Name Role Phone DonellThea Jf JAY Primary Care Provider [phone] Allergies Active Allergy Reactions Criticality Noted Date [...] 2020 [facility]-Cervical Cancer Screening 2023 [facility]-HPV/Cotest 2023 [id number] Vaccine (1 - season) 2025 [facility]-Influenza Vaccine (#1) 06/05/202507/23, 06/19/2011, 08/08/2010 [facility]-Zoster [...] HIV 1/2 Differentiation (10/25/2024 7:42 PM EST) [facility] HIV 1 & 2 Antibody/Antigen Screen Non Reactive Non Reactive 10/25/2024 8:43 PM EST [facility] Comment:Screening for HIV 1 & 2 antibodies, and P24 antigen is NONREACTIVE. No confirmatory testing is required. Blood Venous blood specimen / Unknown Venipuncture / Unknown 10/25/2024 7:42 PM EST 10/25/2024 8:03 PM EST us Farzaneh Singleton MD LAB BLOOD ORDERABLES Final R esult [facility] [address] [place] [address] * Hepatitis C Antibody - ED (10/25/2024 7:42 PM EST) [facility] Hepatitis C Antibody Negative Negative 10/25/2024 8:43 PM EST [facility] Blood Venous blood specimen / Unknown Venipuncture / Unknown 10/25/2024 7:42 PM EST 10/25/2024 8:03 PM EST us Farzaneh Singleton MD LAB BLOOD ORDERABLES Final R esult [facility] [address] [place] [address] from Last 3 Months or Most Recently Relevant to Health Maintenance Insurance AETNA [facility] MEDICAID Care Teams Branch Controller Relationship Specialty Start Date End Date Thea Marley APRN [address] [place] [address] PCP - General 02/15/21
--- OUTSIDE RECORDS SUMMARY | 2025-08-28 11:13 | XMS_ITS | Clinical Summary ---
Author Organization [facility] Address [address] [place] [address] Phone Care Team Providers Care Instructor Private Name Role Phone Moni Moon MD [ ] Conditions or Problems Problem Name Problem Code Onset Date Status Entry Date Provider Comment Standard Description Annotate TOBACCO ABUSE [id number] (SNOMED CT) Active Brii Ybarra Tobacco dependence syndrome 88577639 (SNOMED CT) Active Brii Ybarra PNEUMONIA 306834035 (SNOMED CT) Active Brii Ybarra Pneumonia Medications Medication Instructions Start Date Stop Date Generic Name [facility] Provider ZOFRAN 4 MG ORAL TABLET 9 ONDANSETRON HCL [id number] Nany Munguia FLORASTOR KIDS PACK 9 SACCHAROMYCES BOULARDII PACK [phone] Nany Munguia TYLENOL 500 MG/15ML ORAL LIQUID 9 ACETAMINOPHEN 79397564116 Nany Munguia CEFDINIR CAPS 9 CEFDINIR CAPS [id number] Nany Munguia AZITHROMYCIN 500 MG TABS 9 AZITHROMYCIN [id number] Nany Scottty VITAMINS TABLET 9 MV & MIN W/FE-FA TABS [id number] Nany Munguia Medications Administered No information available. [...]
--- NOTE | 2025-08-30 10:27 | P.PCN_ITS ---
[facility] Procedure Note Date: 08/28/25 Time: 12:35 Procedure Note:: Tilt Table Procedure Note Procedure:? Upright Tilt Table Test Requesting Physician: Sana Robles APRN Indication: Near syncope, extremity tingling, weakness, vision changes Medications:??See chart Pre-test Vital Signs: (Supine):?BP 121/74, heart rate 73, O2 100% on room air Procedure Summary: Patient placed supine on tilt table and secured with straps.? EKG, blood pressure cuff, and pulse oximeter were all in place and monitored every 5 to 10 minutes.? Table was tilted to 70 to 80 degrees within 10 to 15 seconds.? Vitals continuously monitored every 1 to 2 minutes.? Patient maintained upright position for 30 minutes.? Patient was then returned to supine position with additional monitoring of vital signs for 10 minutes.? Patient had numerous complaints during the procedure including dizziness, facial flushing, chest tightness, pressure in the back of her head, vision changes, legs tingling, hands tingling, nerve pain down left side of her body, diaphoresis, lightheadedness, strong urge to sit down , shortness of breath, nauseated. Complications: None Conclusion: Meets criteria for POTS.
== END 2025-08-28 23:59 | disposition home or self-care (01) ==
LOC: RT 08-29 09:47
PROVIDERS: PCP Nurse Practitioner Family; Visit Provider Nurse Practitioner Family
DX: G90.A Postural orthostatic tachycardia syndrome [POTS] (principal)
CPT/HCPCS: 93660

== ENCOUNTER 2025-09-14 14:24 | Outpatient (CLI) | payer OTHER, SELFPAY | END 2025-09-14 23:59 | disposition home or self-care (01) | LOC: DIETICIAN 14:24 | PROVIDERS: PCP Nurse Practitioner Family; Visit Provider Nurse Practitioner Family | DX: K50.10 Crohn's disease of large intestine without complications (principal); Q87.40 Marfan syndrome, unspecified | CPT/HCPCS: 97802 ==